=== PATIENT | female | born 1955 | race Caucasian/White ===

== ENCOUNTER → 2019-06-04 10:16 | Outpatient (BNVA) | payer MEDICARE, SELFPAY | PROVIDERS: Family Provider Internal Medicine; PCP Internal Medicine; Visit Provider Nurse Practitioner Family | DX: J11.1 Influenza due to unidentified influenza virus with other respiratory manifestations (principal) | CPT/HCPCS: 87804 ==

== ENCOUNTER → 2019-07-29 13:06 | Outpatient (BNVA) | payer MEDICARE, SELFPAY | PROVIDERS: Family Provider Internal Medicine; PCP Internal Medicine; Visit Provider Nurse Practitioner | DX: F31.73 Bipolar disorder, in partial remission, most recent episode manic (principal) | CPT/HCPCS: 99214 ==

== ENCOUNTER → 2019-10-04 13:15 | Outpatient (BNVA) | payer MEDICARE, SELFPAY | PROVIDERS: Family Provider Internal Medicine; PCP Internal Medicine; Visit Provider Internal Medicine | DX: E03.9 Hypothyroidism, unspecified (principal); I10 Essential (primary) hypertension; K58.1 Irritable bowel syndrome with constipation | CPT/HCPCS: 80053; 84443; 85025 ==

== ENCOUNTER → 2019-10-21 08:24 | Outpatient (BNVA) | payer MEDICARE, SELFPAY | PROVIDERS: Family Provider Internal Medicine; PCP Internal Medicine; Visit Provider Nurse Practitioner | DX: F31.73 Bipolar disorder, in partial remission, most recent episode manic (principal) | CPT/HCPCS: 99213 ==

== ENCOUNTER 2019-12-06 13:13 | Outpatient (CLI) | payer MEDICARE, SELFPAY ==
[2019-12-06 13:46] LABS: Basophils % 0.3 %; Eosinophils # 0.2 10^3/uL (0.0-0.8); Hematocrit 47.6 % (37.0-47.0); Lymphocytes # 1.9 10^3/uL (0.8-4.8); Lymphocytes % 30.8 %; Mean Corpuscular HGB Conc 31.5 g/dL (30.0-36.0); Mean Corpuscular Hemoglobin 27.6 pg (28.0-34.0); Mean Corpuscular Volume 87.5 fL (81-99); Mean Platelet Volume 10.1 fL (7.4-10.4); Monocytes # 0.7 10^3/uL (0.2-0.9); Monocytes % 11.1 %; Neutrophils % 54.6 %; Nucleated Red Blood Cells % 0 %; Platelet Count 256 10^3/cmm (130-400); Red Blood Count 5.44 10^6/uL (4.1-5.3); Red Cell Distribution Width 16.8 % (12.1-15.1)
[2019-12-06 14:25] LABS: Creatinine Urine, Random 68 mg/dL (28-217); Microalbumin Random Urine 4 ug/dL (0-20)
[2019-12-06 14:29] LABS: Microalbum Creatinine Ratio Ur 59 mg/dL (0-20)
[2019-12-06 14:43] LABS: 25 Hydroxy Vitamin D 35 ng/mL (30-100); Albumin Level 4.1 g/dL (3.5-5.2); Anion Gap 14.6 (5-19); Blood Urea Nitrogen 17 mg/dL (8-23); Calcium 9.1 mg/dL (8.5-10.5); Carbon Dioxide 24 mmol/L (22-29); Chloride 100 mmol/L (98-107); Glomerular Filtration Rate 45.5 mL/min (90-130); Glucose 102 mg/dL (65-115); Phosphorus 4.1 mg/dL (2.5-4.5); Potassium 4.6 mmol/L (3.5-5.1); Sodium 134 mmol/L (136-145)
[2019-12-06 14:44] LABS: Calcium 9.3 mg/dL (8.5-10.5); Parathyroid Hormone 88.6 pg/mL (15-65)
== END 2019-12-06 13:14 | disposition home or self-care (01) ==
LOC: LAB 13:16
PROVIDERS: PCP Internal Medicine; Visit Provider Internal Medicine Nephrology
DX: N18.3 Chronic kidney disease, stage 3 (moderate) (principal)
CPT/HCPCS: 36415; 80069; 82044; 82306; 82310; 83970; 85025

== ENCOUNTER 2019-12-21 12:04 | Outpatient (CLI) | payer MEDICARE, SELFPAY ==
--- NOTE | 2019-12-21 12:09 | XRR_ITS ---
PROCEDURE INFORMATION: Exam: XR Right Knee Exam date and time: 12/21/2019 12:30 PM Age: 64 years old Clinical indication: Right; Patient HX: Fall, pain more in RT knee; Additional info: Right knee pain TECHNIQUE: Imaging protocol: XR Right knee. Views: Single lateral view. COMPARISON: MRI Knee w/o LEFT* [id number] 10/14/2013 8:08 AM FINDINGS: Bones/joints: A superior patellar articular marginal osteophyte is present. No acute bony abnormality identified. Soft tissues: Normal. IMPRESSION: 1. Mild patellar osteophytosis. 2. No acute bony injury identified. PROCEDURE INFORMATION: Exam: XR Left Knee Exam date and time: 12/21/2019 12:30 PM Age: 64 years old Clinical indication: Right; Patient HX: Fall, pain more in RT knee; Additional info: Right knee pain TECHNIQUE: Imaging protocol: XR Left knee. Views: Single lateral view. COMPARISON: MRI Knee w/o LEFT* [id number] 10/14/2013 8:08 AM FINDINGS: Bones/joints: A superior patellar articular marginal osteophyte is present. No acute bony abnormality identified. Soft tissues: Normal. IMPRESSION: 1. Mild patellar osteophytosis. 2. No acute bony injury identified. PROCEDURE INFORMATION: Exam: XR Bilateral Knees, Standing AP Exam date and time: 12/21/2019 12:30 PM Age: 64 years old Clinical indication: Right; Patient HX: Fall, pain more in RT knee; Additional info: Right knee pain TECHNIQUE: Imaging protocol: XR of the bilateral knees. Views: Standing AP. COMPARISON: MRI Knee w/o LEFT* [id number] 10/14/2013 8:08 AM FINDINGS: Bones/joints: Bilateral moderate medial compartment predominate narrowing with mild-moderate articular sclerosis, medial marginal lipping more pronounced on the right. Bilateral intercondylar eminence prominence. No lateral subluxation of the tibiae or significant varus alignment. No acute bony abnormality identified. Soft tissues: Normal. XR/[place] [id number] IMPRESSION: 1. Bilateral medial compartment predominant primary osteoarthritis. 2. No acute bony injury identified.
== END 2019-12-21 12:05 | disposition home or self-care (01) ==
LOC: RAD 12:08
PROVIDERS: PCP Internal Medicine; Visit Provider Internal Medicine
DX: M25.761 Osteophyte, right knee (principal); M25.762 Osteophyte, left knee; M17.0 Bilateral primary osteoarthritis of knee
CPT/HCPCS: 73565

== ENCOUNTER → 2020-03-08 11:55 | Outpatient (BNVA) | payer MEDICARE, SELFPAY | PROVIDERS: PCP Internal Medicine; Visit Provider Internal Medicine | DX: R10.9 Unspecified abdominal pain (principal) | CPT/HCPCS: 81000 ==

== ENCOUNTER 2020-10-16 10:20 | Outpatient (CLI) | payer MEDICARE, SELFPAY | END 2020-10-16 10:21 | disposition home or self-care (01) | LOC: LAB 08-09 16:53 | PROVIDERS: PCP Internal Medicine; Visit Provider Internal Medicine | DX: E03.9 Hypothyroidism, unspecified (principal) | CPT/HCPCS: 84443 ==

== ENCOUNTER → 2021-03-21 09:54 | Outpatient (BNVA) | payer MEDICARE, SELFPAY | PROVIDERS: PCP Internal Medicine; Visit Provider Internal Medicine | DX: Z00.00 Encounter for general adult medical examination without abnormal findings (principal); Z13.220 Encounter for screening for lipoid disorders; Z11.59 Encounter for screening for other viral diseases; Z13.1 Encounter for screening for diabetes mellitus; Z78.0 Asymptomatic menopausal state; Z86.010 Personal history of colon polyps; F17.200 Nicotine dependence, unspecified, uncomplicated; Z13.6 Encounter for screening for cardiovascular disorders; Z13.89 Encounter for screening for other disorder | CPT/HCPCS: 80061; 82947; 86705; 86706; 86709; 86803; 87340 ==

== ENCOUNTER 2021-04-27 08:48 | Outpatient (CLI) | payer MEDICARE, SELFPAY ==
--- NOTE | 2021-04-27 09:02 | XR_ITS ---
WS: [id number] Bone mineral density performed on a [employer], 04/27/2021 Clinical data: post menopausal Comparison studies: 01/04/2019, 02/18/2013. Findings: The first 4 lumbar vertebral bodies demonstrated the bone mineral density of 1.011 g/cm2 for a young adult T score of -1.4. The bone mineral density has diminished compared to the prior study. Measurement of the left hip reveals a bone mineral density of 0.891 g/cm2 with a young adult T score of -0.9. Measurement of the right hip reveals the bone mineral density of 0.912 g/cm2 for young adult T score of -0.8. XR/XR DEXA axial skeleton* [id number] Impression: 1. Osteopenia of the lumbar spine which has decreased from the prior study. 2. Osteopenia of the hips with increased bone mineral density compared to prior study.
--- NOTE | 2021-04-27 09:32 | CT_ITS ---
WS: [id number] LDCT LUNG CANCER SCREENING TECHNIQUE: Noncontrast CT of the chest with coronal and sagittal reformatted images. CLINICAL INFORMATION: smoker COMPARISON: CT chest October 04, 2015 DLP: 51.81 mGy.cm DIvol: 1.[address] scans at [facility] use at least one of these dose optimization techniques: automat ed exposure control; mA and/or kV adjustment per patient size (includes targeted exams where dose is matched to clinical indication); or iterative reconstruction. FINDINGS: Both lungs are well aerated. Postoperative changes bilateral breast prosthesis. Slight bibasilar atel ectasis. No acute pulmonary infiltrates. No mediastinal or hilar lymphadenopathy. Surgical clips left axilla. Cholecystectomy clips. Adrenal Glands are normal. Small esophageal hiatal hernia. Mild spond ylitic changes thoracic spine with disc space narrowing. 2 mm noncalcified nodule right upper lobe. CT/CT lung screening [id number] IMPRESSION: LUNG-RADS: 2-Benign Appearance or Behavior FOLLOW UP: 12 Month: Continue annual screening with LDCT
== END 2021-04-27 08:49 | disposition home or self-care (01) ==
PROVIDERS: PCP Internal Medicine; Visit Provider Internal Medicine
DX: Z12.2 Encounter for screening for malignant neoplasm of respiratory organs (principal); F17.200 Nicotine dependence, unspecified, uncomplicated; Z78.0 Asymptomatic menopausal state; M85.88 Other specified disorders of bone density and structure, other site
CPT/HCPCS: 71271; 77080

== ENCOUNTER 2021-06-20 07:02 | Outpatient (CLI) | payer MEDICARE, SELFPAY ==
--- NOTE | 2021-06-20 07:15 | US_ITS ---
WS: [id number] ULTRASOUND SOFT TISSUES RIGHT axilla HISTORY: Z85.3 - Personal history of malignant neoplasm of breast COMPARISON: Lung CT screening 04/27/2018 TECHNIQUE: 2-D and color Doppler imaging is submitted. Ultrasound is directed to the RIGHT axilla in the area of interest. Seen on the transverse imaging is irregular shaped soft tissue mass of predominantly low echogenicity. Mild peripheral increased vascu larity. There is a hyperechoic border. Upon sagittal imaging this elongates and appears more be ori l muscle. As this is a significant abnormality in the transverse view additional imaging should be at tempted to exclude a mass. US/US soft tissue/extremity [id number] IMPRESSION: 1. Indeterminate for mass in the RIGHT axilla in the region of the palpable ab normality. Only on the transverse image does this area appear suspicious. On th e sagittal imaging this masslike area elongates and appears more like a normal muscle. 2. Additional imaging and evaluation should be attempted to exclude a subtle m ass or adenopathy. This ultrasound is inconclusive for possible mass. Consider follow-up RIGHT shoulder CT with IV contrast. Palpable marker should be placed over the area of interest. This would include the axillary region.
== END 2021-06-20 07:03 | disposition home or self-care (01) ==
LOC: RAD 07:04
PROVIDERS: PCP Internal Medicine; Visit Provider Surgery
DX: Z85.3 Personal history of malignant neoplasm of breast (principal); N63.31 Unspecified lump in axillary tail of the right breast
CPT/HCPCS: 76882

== ENCOUNTER → 2021-10-04 14:32 | Outpatient (BNVA) | payer MEDICARE, SELFPAY | PROVIDERS: PCP Internal Medicine; Visit Provider Internal Medicine | DX: R53.83 Other fatigue (principal); D64.9 Anemia, unspecified; R30.0 Dysuria; I10 Essential (primary) hypertension; E03.9 Hypothyroidism, unspecified; K58.1 Irritable bowel syndrome with constipation; Z86.010 Personal history of colon polyps; M50.90 Cervical disc disorder, unspecified, unspecified cervical region; M25.561 Pain in right knee; F31.73 Bipolar disorder, in partial remission, most recent episode manic | CPT/HCPCS: 80053; 81000; 82607; 82746; 83550; 84443; 85025 ==

== ENCOUNTER 2023-05-14 08:24 | Outpatient (CLI) | payer MEDICARE, SELFPAY ==
--- NOTE | 2023-05-14 08:27 | MR_ITS ---
WS: [id number] MRI PELVIS WITHOUT CONTRAST. COMPARISON: CT 04/20/2018 Multiplanar, multisequence imaging is performed without contrast. No sacral insufficiency fracture identified. SI joints are normal. No edema within the sacrum. As compared to the prior CT from 2018 there has been a progression of degenerative joint disease invo lving the hips, RIGHT greater than LEFT. There is synovial thickening with erosions especially involv ing the RIGHT femoral head and the acetabulum. Subchondral cystic changes bilaterally but greatest on the RIGHT. There is a small amount of edema in the acetabulum and also in the proximal femurs, RIGH T greater than LEFT. This is not a typical appearance for recent trauma. I suspect this is probably a ll inflammatory and post arthritic. Paralabral cyst also suspected on the RIGHT. There is a very tiny amount of edema within the very distal coccyx. This may be from the recent traum a. There is a small amount of fluid and edema adjacent to the posterior and inferior coccygeal segmen t. IMPRESSION: 1. Small amount of acute marrow edema in the very distal coccyx with adjacent soft tissue edema. This is probably related to the recent trauma. A tiny fracture in the very distal coccygeal segment is [place] spected. 2. Significant degenerative changes noted at the hip joints bilaterally, RIGHT greater than LEFT. Pro gressed since 2018. Favor synovitis and possible inflammatory/rheumatoid arthritis. Greater amount of erosions with joint space narrowing and edema involving the RIGHT hip.
--- NOTE | 2023-05-14 08:27 | MR_ITS ---
WS: [id number] MRI LUMBAR SPINE NONCONTRAST HISTORY: Coccydynia. COMPARISON: None available. TECHNIQUE: Sagittal and axial multisequence imaging is submitted. Increase in thoracic kyphosis. Variable signal in T10 is probably due to hemangioma. Mild curvature and increased lumbar lordosis. No fractures. No marrow edema in the lumbar spine. Disc spaces and vertebral body heights are well-preserved. Conus terminates normally at L1-2 disc level. L1-L2: Diffuse annular disc bulging encroaching upon the ventral thecal sac. No high-grade stenosis. L2-L3: Diffuse mild annular disc bulging, ligamentum flavum and facet arthritis. Encroachment upon th e ventral thecal sac and the subarticular recesses. Very mild central, bilateral subarticular recess and foraminal stenosis. Most significant encroachment upon the traversing RIGHT L3 nerve root. L3-L4: Mild annular disc bulging encroaching upon the ventral thecal sac, subarticular recesses and f oramina. Moderate ligamentum flavum and facet arthritis. L4-L5: Mild annular disc bulging. Shallow LEFT paracentral disc protrusion extends into the subarticu lar recess. Severe bilateral facet joint arthritis and ligamentum flavum hypertrophy. Moderate centra l, bilateral subarticular recess and LEFT foraminal stenosis. Mild RIGHT foramen stenosis. L5-S1: No stenosis. Marked atrophy of the RIGHT kidney. Renal atrophy previously described on 04/20/2018. IMPRESSION: 1. No lumbar spine fracture. 2. L4-5: Shallow LEFT paracentral disc protrusion extends into the subarticular recess. Severe bilate ral facet joint arthritis and ligamentum flavum hypertrophy. Combination of findings resulting in mod erate central, bilateral subarticular recess and LEFT foraminal stenosis. Only mild RIGHT foramen caro nosis. 3. L3-4: Moderate facet joint arthritis. Mild central, subarticular recess and foraminal stenosis. 4. L2-3: Mild central, bilateral subarticular recess and foraminal stenosis.
== END 2023-05-14 08:25 | disposition home or self-care (01) ==
LOC: RAD 08:24
PROVIDERS: PCP Internal Medicine; Visit Provider Internal Medicine
DX: M53.3 Sacrococcygeal disorders, not elsewhere classified (principal); M51.26 Other intervertebral disc displacement, lumbar region; M47.816 Spondylosis without myelopathy or radiculopathy, lumbar region; M48.061 Spinal stenosis, lumbar region without neurogenic claudication
CPT/HCPCS: 72148; 72195

== ENCOUNTER → 2024-01-01 11:57 | Outpatient (BNVA) | payer MEDICARE, SELFPAY | PROVIDERS: PCP Internal Medicine; Visit Provider Family Medicine Adult Medicine | DX: E03.9 Hypothyroidism, unspecified (principal); I10 Essential (primary) hypertension; F31.73 Bipolar disorder, in partial remission, most recent episode manic; K58.1 Irritable bowel syndrome with constipation | CPT/HCPCS: 80053; 84443; 85025 ==

== ENCOUNTER → 2024-01-07 10:11 | Outpatient (BNVA) | payer MEDICARE, SELFPAY | PROVIDERS: PCP Family Medicine Adult Medicine | DX: I10 Essential (primary) hypertension (principal); D69.6 Thrombocytopenia, unspecified | CPT/HCPCS: 85025 ==

== ENCOUNTER → 2024-01-09 13:43 | Outpatient (BNVA) | payer MEDICARE, SELFPAY | PROVIDERS: PCP Family Medicine Adult Medicine; Visit Provider Family Medicine Adult Medicine | DX: I12.9 Hypertensive chronic kidney disease with stage 1 through stage 4 chronic kidney disease, or unspecified chronic kidney disease (principal); R74.8 Abnormal levels of other serum enzymes; N18.31 Chronic kidney disease, stage 3a; D69.6 Thrombocytopenia, unspecified | CPT/HCPCS: 80053; 80061 ==

== ENCOUNTER 2024-03-24 09:32 | Outpatient (CLI) | payer MEDICARE, SELFPAY ==
--- NOTE | 2024-03-24 09:37 | CT_ITS ---
WS: [id number] CT CHEST, ABDOMEN AND PELVIS WITH CONTRAST HISTORY: MALIGN NEOPL BREAST/OSTEOPENIA/ENLARGED LYMPH NODES TECHNIQUE: Contiguous 5 mm axial imaging performed through the chest, abdomen and pelvis with IV cont rast, oral contrast has been provided. Coronal and sagittal reformats chest. Coronal and sagittal ref ormats through the abdomen and pelvis. All CT scans at [facility] use at least one of these d ose optimization techniques: automated exposure control; mA and/or kV adjustment per patient size (in cludes targeted exams where dose is matched to clinical indication); or iterative reconstruction. CONTRAST: Omnipaque 350; 100 mL IV. DLP: 636.19 mGy.cm COMPARISON: CT abdomen and pelvis 04/20/2018. Lung screening 04/27/[address]: Lungs are clear. No pulmonary mass, pneumonia or nodule. No pericardial or pleural effusion s. Mild atherosclerosis aorta. Normal size pulmonary artery. Normal size heart. Small hiatal hernia. No mediastinal or hilar adenopathy. Mild increase in thoracic kyphosis. No sclerotic or lytic bone l esions. Bilateral mastectomies with implants. Abdomen CT: Normal liver and spleen. Prior cholecystectomy. Normal portal vein. Normal pancreas and a drenal glands. Severe atrophy RIGHT kidney but there is enhancement. Normal size LEFT kidney with foc al cortical thinning. No mass. No aortic aneurysm. Mesenteric arteries are well opacified. Mild gastric wall thickening is diffuse. In part this may be due to under distention. No small bowel obstruction. No colon obstruction. There are a few scattered diverticula in the distal colon. No acut e diverticulitis. There is circumferential thickening of the sigmoid colon which is probably due to c hronic diverticulosis. No ascites. There are small retroperitoneal and mesenteric lymph nodes. Pelvic CT: No free fluid or adenopathy. Normal urinary bladder. Increase in the lumbar lordosis. No osteoblastic or osteolytic bone disease. Advanced degenerative ch anges at the hip joints. Remodeling of the each hip joint but much greater on on the RIGHT. Partial l ateral subluxation with numerous erosions and subchondral cysts. There is a large cystic mass with pe ripheral enhancement associated with the RIGHT hip joint. This is probably a synovial cyst related to the advanced osteoarthritis. CT/CT chest abdpel w/*[id number] IMPRESSION: 1. No metastatic disease to the chest, abdomen or pelvis. 2. No pulmonary masses or nodules. 3. Prior bilateral mastectomies with implants. 4. Severe atrophy RIGHT kidney. LEFT kidney is normal size with focal cortical thinning. 5. No GI tract obstruction. 6. Severe degenerative changes at the hip joints but greatest on the RIGHT. 7. Small mesenteric and retroperitoneal lymph nodes. No significantly enlarged lymph nodes.
[2024-03-24] MEDS: iohexol 350 mg/mL 500 mL Btl (per mL) PO (10:26)
[2024-03-24 10:32] LABS: Blood Urea Nitrogen 22 mg/dL (8-23); Glomerular Filtration Rate 55.5 mL/min (90-130)
[2024-03-24] MEDS: iohexol 350 mg/mL 500 mL Btl (per mL) IV (11:34)
== END 2024-03-24 09:33 | disposition home or self-care (01) ==
LOC: RAD 09:33
PROVIDERS: PCP Family Medicine Adult Medicine; Visit Provider Internal Medicine
DX: R22.2 Localized swelling, mass and lump, trunk (principal); M16.0 Bilateral primary osteoarthritis of hip; K57.90 Diverticulosis of intestine, part unspecified, without perforation or abscess without bleeding; Z98.82 Breast implant status; Z90.49 Acquired absence of other specified parts of digestive tract; M71.351 Other bursal cyst, right hip
CPT/HCPCS: 71260; 74177; 82565; 84520

== ENCOUNTER → 2024-04-26 14:27 | Outpatient (BNVA) | payer MEDICARE, SELFPAY | PROVIDERS: PCP Family Medicine Adult Medicine; Visit Provider Nurse Practitioner | DX: M25.551 Pain in right hip (principal); M16.11 Unilateral primary osteoarthritis, right hip; M85.68 Other cyst of bone, other site | CPT/HCPCS: 73502; 99204 ==

== ENCOUNTER → 2024-05-27 09:35 | Outpatient (BNVA) | payer MEDICARE, SELFPAY | PROVIDERS: PCP Family Medicine; Visit Provider Family Medicine | DX: R39.15 Urgency of urination (principal); R50.9 Fever, unspecified; N18.31 Chronic kidney disease, stage 3a; K57.90 Diverticulosis of intestine, part unspecified, without perforation or abscess without bleeding; E03.9 Hypothyroidism, unspecified; I25.10 Atherosclerotic heart disease of native coronary artery without angina pectoris; I10 Essential (primary) hypertension; R74.8 Abnormal levels of other serum enzymes | CPT/HCPCS: 80053; 80061; 81000; 84075; 84080; 84439; 84443; 85025; 87086 ==

== ENCOUNTER → 2024-05-28 14:40 | Outpatient (BNVA) | payer MEDICARE, SELFPAY | PROVIDERS: PCP Family Medicine; Visit Provider Family Medicine | DX: R39.15 Urgency of urination (principal); R50.9 Fever, unspecified; N18.31 Chronic kidney disease, stage 3a; K57.90 Diverticulosis of intestine, part unspecified, without perforation or abscess without bleeding; E03.9 Hypothyroidism, unspecified; I25.10 Atherosclerotic heart disease of native coronary artery without angina pectoris; I10 Essential (primary) hypertension; R74.8 Abnormal levels of other serum enzymes | CPT/HCPCS: 85025 ==

== ENCOUNTER → 2024-05-31 10:30 | Outpatient (BNVA) | payer MEDICARE, SELFPAY | PROVIDERS: PCP Family Medicine; Visit Provider Nurse Practitioner | DX: M16.11 Unilateral primary osteoarthritis, right hip (principal); Z22.322 Carrier or suspected carrier of Methicillin resistant Staphylococcus aureus; M85.68 Other cyst of bone, other site | CPT/HCPCS: 36415; 80053; 81001; 85025; 99214 ==

== ENCOUNTER → 2024-06-02 09:12 | Outpatient (BNVA) | payer MEDICARE, SELFPAY | PROVIDERS: PCP Family Medicine; Visit Provider Family Medicine | DX: Z01.818 Encounter for other preprocedural examination (principal); I51.7 Cardiomegaly | CPT/HCPCS: 93005 ==

== ENCOUNTER → 2024-06-03 09:00 | Day surgery (SDC) | payer MEDICARE, SELFPAY ==
[2024-06-03 09:10] VITALS: BP 148/104; PULSE 90; RESP 18; TEMP 36.2; O2SAT 100
[2024-06-03 09:26] VITALS: BMI 24.7
[2024-06-03] MEDS: gabapentin 300 mg Capsule PO (09:34)
[2024-06-03] MEDS: acetaminophen 1,000 MG/100 ML PIGGYBACK 400 MG IV (09:34)
[2024-06-03 09:35] VITALS: BP 148/104
[2024-06-03] MEDS: scopolamine 1 mg PATCH 1 PATCH TRANSDERMA (09:35)
--- NOTE | 2024-06-03 09:50 | P.ANESASSM_ITS ---
Pre-Anesthetic Assessment Height/Weight: Height 1.63 m Weight 65.317 kg Temp Pulse Resp BP Pulse Ox O2 Del Method 97.2 F L 90 18 148/104 100 Room Air 06/03/24 09:10 06/03/24 09:10 06/03/24 09:10 06/03/24 09:35 06/03/24 09:10 06/03/24 09:10 Operation Date: 06/03/24 11:10 Proposed Procedures p Total Hip Arthroplasty(Not Applicable) - Kamilla Rae MD Familial anesthetic complications: PONV Was Beta Usha taken within 24 hours: N/A Was Clonidine taken within 24 hours: N/A Last intake: Intake Last Liquid Date 06/02/24 Last Liquid Time 22:00 Last Solid Date 06/02/24 Last Solid Time 19:30 Social Tobacco and No alcohol Exam alert, oriented x 3 and regular rate & rhythm Airway Submandibular: within normal limits Cervical ROM: within normal limits Mallampati: Class II Dentition: full Pulmonary Chronic Obstructive Pulmonary Disease CV/HEM Coronary Artery Disease and Murmur (MVP) Chronic Renal Insufficiency Metabolic Thyroid Disease Musc/skel Lower Back Pain and Osteoarthritis/DJD Neuropsych Anxiety and Depression Chronic pain Anesthetic Plan ASA status: 3 Anesthesia: Regional (specify below) (SAB) Medications/Allergies Home Medications Medication Instructions Recorded Confirmed Last Taken Type clonazepam 0.5 mg tablet (Klonopin) 0.5 mg PO DAILY PRN anxiety #30 01/01/24 06/03/24 06/02/24 Rx tabs tizanidine 4 mg capsule 4 mg PO BEDTIME PRN muscle relaxer 01/01/24 06/03/24 06/02/24 History levothyroxine 175 mcg tablet 175 mcg PO DAILY #90 tabs 01/02/24 06/03/24 06/02/24 Rx hydrocodone 5 mg-acetaminophen 300 1 tab PO Q6H PRN Pain, Mild 04/26/24 06/03/24 06/02/24 History mg tablet meloxicam 15 mg tablet 15 mg PO DAILY PRN pain #30 tabs 05/24/24 06/03/24 05/29/24 Rx mupirocin 2 % topical ointment 1 applic topical BID 7 days #15 05/31/24 06/03/24 Unknown Rx grams prednisone 20 mg tablet See Rx Instructions PO DAILY #4 05/31/24 06/03/24 06/02/24 Rx tabs ondansetron HCl 8 mg tablet 8 mg PO Q6H PRN Nausea And Vomiting 06/02/24 06/03/24 05/31/24 History Allergies Allergy/AdvReac Type Severity Reaction Status Date / Time Penicillins Allergy Severe ALGY-Anaphy Verified 06/03/24 09:14 laxis ciprofloxacin [From Cipro] Allergy rash Verified 06/03/24 09:14 erythromycin base Allergy rash Verified 06/03/24 09:14 propoxyphene [From Darvon] Allergy rash Verified 06/03/24 09:14 Sulfa (Sulfonamide Allergy rash Verified 06/03/24 09:14 Antibiotics) titanium Allergy Unknown Verified 06/03/24 09:14 [facility] Anesthesia Medical History Abnormal alkaline phosphatase test TREVOR (obstructive sleep apnea) not using CPAP Mitral valve prolapse Refusal of statin medication by patient Chronic pain pain meds through pain clinic [facility] Nicotine dependence, cigarettes, uncomplicated Lumbar back pain Diverticulosis Family hx of colon cancer CAD (coronary artery disease) has had angioplasty twice; refuses statins History of bilateral breast cancer bilateral mastectomy; no radiation or chemo; sees Dr. Brandt at [facility] Knee pain, right Need for antibiotic prophylaxis for dental procedure CKD stage 3a, GFR 45-59 ml/min atrophic Right History of uterine cancer hyst only Bipolar disorder, in partial remission, most recent episode manic Essential (primary) hypertension refuses med; says her BP is fine and only up when in pain Acquired hypothyroidism History of colon polyps Surgical History Hx of hand surgery Right middle finger knuckle replaced in [employer] History of surgery on lower extremity Left lower leg--had fx, surgery, then infected so had it removed History of mandibular surgery R jaw--done b/c of infection in bone after root canal History of surgery of head R evangelical; not a craniotomy Hx of colonoscopy with polypectomy hx of >20 polyps removed; Hx of hysterectomy ovaries remaining; done for uterine cancer History of kidney surgery had ureter surgery bilaterally; H/O left mastectomy H/O right mastectomy History of cholecystectomy History of hernia repair R abdominal X 2 History of colonoscopy History of angioplasty cardiac; has had angioplasty X 2--last time at [facility] History of appendectomy History of elbow surgery Right History of esophagogastroduodenoscopy (EGD) Family History Mother Alzheimer's dementia Sister Alzheimer's dementia Grandmother Aneurysm cerebral Father Colon cancer Grandfather Cancer kidney Brother Colon cancer Sister Cancer Lymphoma Other Kidney disease Social History Smoking and tobacco/nicotine status: current every day tobacco/nicotine user cigarettes Packs smoked per day: 0.75 [ Other cigarette details: 27pk yr hx; started age 32] Alcohol intake: current Alcohol intake frequency: few times a month Alcohol type: beer Substance/Drug Use: never Household members: spouse Marital status: Number of children: 0 Highest education level completed: Some College, No Degree Current occupational status: retired 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
[2024-06-03] MEDS: sodium chloride 0.9% 1,000 ML 30 ML IV (10:00)
[2024-06-03] MEDS: VANCOMYCIN ADD-Vantage 1,000 MG in 0.9% NaCl ADD-Vantage 250 ML 250 MG IV (10:14)
[2024-06-03] MEDS: mupirocin oint 22 gm 1 APPLIC NOSTRIL-B (10:26)
[2024-06-03 10:34] VITALS: RESP 18; O2SAT 100
[2024-06-03] MEDS: HYDROmorphone 1 mg/mL INJ 1 mL 0.5 MG IVP (10:34)
--- NOTE | 2024-06-03 11:10 | PC.NURSE ---
Patient allergic to titanium. Dr. Rae and Carlotta in to speak with patient. Decision made to cancel surgery at this time.
--- NOTE | 2024-06-03 11:27 | PM.MISC ---
Miscellaneous Note Purpose of Documentation: Case Cancelled Note: Surgical case cancelled for component allergy.
--- NOTE | 2024-06-03 17:34 | PM.MISC ---
Miscellaneous Note Purpose of Documentation: Surgery Cancellation Note: Patient presented for her surgical procedure today. She had significant concerns regarding a potential titanium allergy. There is no available implant that does not include titanium. I advised her I would research available implants that did not contain titanium, and we would plan to proceed. She is advised this is a very rare allergy, and even with allergy, there are minimal reports of true allergy with implants. Due to her reaction to prior plate and screws, it seemed the better plan to delay the intervention.
== END ==
PROVIDERS: PCP Family Medicine; Visit Provider Specialist
PROC: (CPT 27130; principal; 2024-06-03 10:35)
DX: Z53.8 Procedure and treatment not carried out for other reasons (principal)
CPT/HCPCS: J0131; J1171; J2250; J2704; J3370; J7030; J7050

== ENCOUNTER → 2024-06-16 14:09 | Outpatient (BNVA) | payer MEDICARE, SELFPAY | PROVIDERS: PCP Family Medicine; Visit Provider Nurse Practitioner | DX: M16.11 Unilateral primary osteoarthritis, right hip (principal); M85.60 Other cyst of bone, unspecified site; Z22.322 Carrier or suspected carrier of Methicillin resistant Staphylococcus aureus | CPT/HCPCS: 99213 ==

== ENCOUNTER 2024-07-06 06:42 | Day surgery (SDC) | payer MEDICARE, SELFPAY ==
[2024-07-06 06:54] VITALS: BP 156/100; PULSE 84; RESP 17; TEMP 36.5; O2SAT 97; BMI 24.7
--- NOTE | 2024-07-06 07:24 | SUR.PREOP ---
0705 Dr Rae here with patient and after speaking with pt,d-dimer ordered due to pt c/o bilateral swollen legs,will hold off surgery until results done,OR staff and anesthesia notified
--- NOTE | 2024-07-06 07:35 | P.ANESASSM_ITS ---
Pre-Anesthetic Assessment Height/Weight: Height 5 ft 4 in Weight 144 lb Temp Pulse Resp BP Pulse Ox O2 Del Method 97.7 F 84 17 156/100 97 Room Air 07/06/24 06:54 07/06/24 06:54 07/06/24 06:54 07/06/24 06:54 07/06/24 06:54 07/06/24 06:54 Preop Diagnosis: Hip arthritis Operation Date: 07/06/24 07:50 Proposed Procedures p Total Hip Arthroplasty(Right) - Kamilla Rae MD Was Beta Usha taken within 24 hours: N/A Was Clonidine taken within 24 hours: N/A Last intake: Intake Last Liquid Date 07/05/24 Last Liquid Time 22:00 Last Solid Date 07/05/24 Last Solid Time 21:00 Social Tobacco and No alcohol Exam alert, oriented x 3, clear to auscultation bilaterally and regular rate & rhythm Airway Submandibular: within normal limits Cervical ROM: within normal limits Mallampati: Class II Dentition: full Anesthetic Plan ASA status: 3 Anesthesia: MAC and Regional (specify below) Other: No prior issues with anesthesia, patient was recently here and found to have a titanium allergy. Patient was rescheduled for today NPO since yesterday History of COPD, current smoker CAD with mitral valve prolapse Patient has chronic renal insufficiency Patient has chronic renal insufficiency Hypothyroidism on Synthroid Patient takes chronic Show Low 4 times daily for pain Patient states that she has swelling in her extremities, surgeon would like a D- dimer prior to going to surgery Type and screen will be performed Plan for spinal anesthetic Medications/Allergies Home Medications ?Medication ?Instructions ?Recorded ?Confirmed ?Last Taken ?Type clonazepam 0.5 mg tablet (Klonopin) 0.5 mg PO DAILY NE N anxiety #30 01/01/24 07/05/24 07/04/24 Rx tabs tizanidine 4 mg capsule 4 mg PO BEDTIME PRN muscle r elaxer 01/01/24 07/05/24 07/04/24 History levothyroxine 175 mcg tablet 175 mcg PO DAILY #90 tabs 01/02/24 07/05/24 07/05/24 Rx hydrocodone 5 mg-acetaminophen 300 1 tab PO Q6H PRN Pa in, Mild 04/26/24 07/05/24 07/04/24 History mg tablet meloxicam 15 mg tablet 15 mg PO DAILY PRN pain #30 tabs 05/24/24 07/05/24 06/21/24 Rx mupirocin 2 % topical ointment 1 applic topical BID 7 days #15 05/31/24 07/05/24 Unknown Rx grams ondansetron HCl 8 mg tablet 8 mg PO Q6H PRN Nausea And Vomiting 06/02/24 07/05/24 07/03/24 History Allergies Allergy/AdvReac Type Severity Reaction Status Date / Time Penicillins Allergy Severe ALGY-Anaphy Verified 07/06/24 07:14 laxis ciprofloxacin (From Cipro) Allergy rash Verified 07/06/24 07:14 erythromycin base Allergy rash Verified 07/06/24 07:14 propoxyphene (From Darvon) Allergy rash Verified 07/06/24 07:14 Sulfa (Sulfonamide Allergy rash Verified 07/06/24 07:14 Antibiotics) titanium Allergy Unknown Verified 07/06/24 07:14 PFSH Anesthesia Medical History Abnormal alkaline phosphatase test TREVOR (obstructive sleep apnea) not using CPAP Mitral valve prolapse Refusal of statin medication by patient Chronic pain pain meds through pain clinic [facility] Nicotine dependence, cigarettes, uncomplicated Lumbar back pain Diverticulosis Family hx of colon cancer CAD (coronary artery disease) has had angioplasty twice; refuses statins History of bilateral breast cancer bilateral mastectomy; no radiation or chemo; sees Dr. Brandt at [facility] Knee pain, right Need for antibiotic prophylaxis for dental procedure CKD stage 3a, GFR 45-59 ml/min atrophic Right History of uterine cancer hyst only Bipolar disorder, in partial remission, most recent episode manic Essential (primary) hypertension refuses med; says her BP is fine and only up when in pain Acquired hypothyroidism History of colon polyps Surgical History Hx of hand surgery Right middle finger knuckle replaced in [place] History of surgery on lower extremity Left lower leg--had fx, surgery, then infected so had it removed History of mandibular surgery R jaw--done b/c of infection in bone after root canal History of surgery of head R rastafari; not a craniotomy Hx of colonoscopy with polypectomy hx of >20 polyps removed; Hx of hysterectomy ovaries remaining; done for uterine cancer History of kidney surgery had ureter surgery bilaterally; H/O left mastectomy H/O right mastectomy History of cholecystectomy History of hernia repair R abdominal X 2 History of colonoscopy History of angioplasty cardiac; has had angioplasty X 2--last time at [facility] History of appendectomy History of elbow surgery Right History of esophagogastroduodenoscopy (EGD) Family History Mother Alzheimer's dementia Sister Alzheimer's dementia Grandmother Aneurysm cerebral Father Colon cancer Grandfather Cancer kidney Brother Colon cancer Sister Cancer Lymphoma Other Kidney disease Social History Smoking and tobacco/nicotine status: current every day tobacco/nicotine user cigarettes Packs smoked per day: 0.75 [ Other cigarette details: 27pk yr hx; started age 32] Alcohol intake: current Alcohol intake frequency: few times a month Alcohol type: beer Substance/Drug Use: never Household members: spouse Marital status: Number of children: 0 Highest education level completed: Some College, No Degree Current occupational status: retired 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
[2024-07-06 08:06] LABS: D Dimer 1.46 ug/mLFEU (0-0.59)
--- NOTE | 2024-07-06 08:17 | PC.NURSE ---
patient was here for right hip surgery with Dr. Rae complaints of leg swelling and pain from hip down. Received a D dimer and it came back positive. Dr. Rae wants patient to go to ER for further evaluation. Transported patient to ER. Patient vitals are stable and no distress noted. Report given to ER nurse at bedside.
--- NOTE | 2024-07-06 09:38 | P.MISC_ITS ---
Miscellaneous Note Purpose of Documentation: Cancellation of surgery Note: This 69-year-old presented today for total hip arthroplasty. Previously, she was scheduled for total hip arthroplasty, but upon discussion, the patient reported that she had a titanium allergy . When queried further about this, the patient stated that she had been told this by wound care several years ago when she had difficulty healing the wound following an ankle fracture. The pl ate was removed, and the wound healed. To address her concerns regarding this allergy, research was accomplished and today, a special prosthesis was available that is titanium free . It was explained to the patient that this would require a cemented component as the press-fit components have an element of titanium. When the patient presented today, she stated that her legs have been very painful over the past 3 days. She had increased swelling stating that her legs were huge at night. Because of this, concern was expressed to the patient regarding potential for early DVT. D-dimer was ordered in the preoperative area and returned at 1.46 with the upper limit of normal 0.59. For this reason, the patient was sent to the emergency department for further evaluation of her sudden increase in leg pain as well as significant increase in level of swelling in her lower extremities. This was explained in detail to the patient. She understood and was comfortable with the decision.
== END 2024-07-06 11:54 | disposition home or self-care (01) ==
LOC: OR 06:43
PROVIDERS: PCP Family Medicine; Visit Provider Specialist
PROC: (CPT 27130; principal; 2024-07-06 07:50)
DX: M16.11 Unilateral primary osteoarthritis, right hip (principal); M85.651 Other cyst of bone, right thigh; Z53.09 Procedure and treatment not carried out because of other contraindication; Z91.09 Other allergy status, other than to drugs and biological substances; Z88.0 Allergy status to penicillin; Z88.8 Allergy status to other drugs, medicaments and biological substances; Z88.2 Allergy status to sulfonamides; F17.210 Nicotine dependence, cigarettes, uncomplicated; Z86.14 Personal history of Methicillin resistant Staphylococcus aureus infection; I25.10 Atherosclerotic heart disease of native coronary artery without angina pectoris; E03.9 Hypothyroidism, unspecified; Z79.890 Hormone replacement therapy; Z79.899 Other long term (current) drug therapy; G47.33 Obstructive sleep apnea (adult) (pediatric); I12.9 Hypertensive chronic kidney disease with stage 1 through stage 4 chronic kidney disease, or unspecified chronic kidney disease; Z85.42 Personal history of malignant neoplasm of other parts of uterus; N18.31 Chronic kidney disease, stage 3a; Z85.3 Personal history of malignant neoplasm of breast
CPT/HCPCS: 36415; 85378; 86850; 86900; J2250; J2371; J2405; J2704; J3370

== ENCOUNTER 2024-07-06 08:23 | Emergency (ER) | payer MEDICARE, SELFPAY ==
[2024-07-06 08:27] VITALS: BP 153/105; PULSE 82; RESP 17; TEMP 36.6; O2SAT 97; BMI 24.7
--- NOTE | 2024-07-06 08:41 | XR_ITS ---
WS: [id number] XR chest 1V portable [id number] REASON FOR EXAM: dyspnea/cough FINDINGS: Significant tortuosity and ectasia of the thoracic aorta. Aortic arch appears rather prominent however CT scan of the chest abdomen and pelvis 03/24/2024 demonstrated no aneurysmal dilatation. Calcified granulomatous disease in both hemithoraces. No acute pulmonary parenchymal or pleural abnormality is identified. Mild thoracic scoliosis with moderate degenerative spondylosis of the thoracic spine. Moderate degenerative arthropathy in both shoulders. XR/XR chest 1V portable [id number] IMPRESSION: No acute chest abnormality.
--- NOTE | 2024-07-06 08:41 | USCV_ITS ---
Rickey Kellie Age: 69 Gender: F : 1955 Exam Date: 07/06/2024 08:56 Ordering Phys: Jake Michael DO Technologist: CT Exam Location: [facility] [place]_ Indication: PROCEDURES: The venous duplex Doppler examination of both lower extremities was performed in the standard fashion. Bilaterally, the common femoral, superficial femoral, profunda femoral, popliteal, posterior tibial, greater saphenous veins, and the peroneal trunk were identified and interrogated in the standard fashion. These veins were found to be easily compressible with spontaneous blood flow. No evidence of insufficiency or thrombus noted. FINDINGS: normal us CONCLUSIONS No evidence of right lower extremity DVT. No evidence of left lower extremity DVT. Brennon Machado MD (Electronically Signed) Final Date: 06 July 2024 10:52 S
--- NOTE | 2024-07-06 08:54 | ECG_ITS ---
[facility] 2024-[facility]06 Pat Name: Kellie Lang Department: Room: Gender: Female Fraud Manager: : 1955 Requested By: Jake Brown Order Number: [id number] Samanta MD: Jaz Gregory M.D. Measurements Intervals [place] Rate: 74 P: 69 ID: 130 QRS: 82 QRSD: 86 T: 51 QT: 368 QTc: 410 Interpretive Statements SINUS RHYTHM POSSIBLE LEFT ATRIAL ENLARGEMENT [-0.1mV P-WAVE IN V1/V2] NONSPECIFIC T-WAVE ABNORMALITY Compared to ECG 06/02/2024 09:22:59 T-wave abnormality now present Left ventricular hypertrophy no longer present ST (T wave) deviation no longer present Electronically Signed On 07-07-2024 17:30:13 PAYLOADER OPERATOR by Jaz Gregory M.D. [email or web address]
--- NOTE | 2024-07-06 09:33 | ED_ITS ---
HPI - Extremity Problem 2 General: Chief complaint: Extremity Problem,Nontraumatic Stated complaint: poss blood clot (sent by blood clot) Time Seen by Provider: 07/06/24 08:41 History of Present Illness: 69-year-old female presents to the emerg ency room with concern of a possible blood clot in her lower extremities. She was scheduled for a right hip arthroplasty today there is a complaint of swelling in her lower extremities she has been fairly immobile because of the degree of pain. Patient reports significant pain in that right hip which is been ongoing she has noted some increased swelling in her lower extremities worse later in the day better when she gets up in the morning. She had a D-dimer done which was slightly elevated at 1.46 Associated symptoms: Deny chest pain, fever(s) or rash Related Data Home Medications ?Medication ?Instructions ?Recorded ?Confirmed ondansetron HCl 8 mg tablet 8 mg PO Q6H PRN Nausea And Vomiting 06/02/24 07/06/24 hydrocodone 5 mg-acetaminophen 325 0.5 - 1 tab PO Q8H PRN Pain 07/06/24 07/06/24 mg tablet tizanidine 4 mg tablet 4 mg PO DAILY PRN Muscle Spa sm 07/06/24 07/06/24 Previous Rx's ?Medication ?Instructions ?Recorded clonazepam 0.5 mg tablet (Klonopin) 0.5 mg PO DAILY NE N anxiety #30 01/01/24 tabs levothyroxine 175 mcg tablet 175 mcg PO DAILY #90 tabs 01/02/24 meloxicam 15 mg tablet 15 mg PO DAILY PRN pain #30 tabs 05/24/24 mupirocin 2 % topical ointment 1 applic topical BID 7 days #15 05/31/24 grams Allergies Allergy/AdvReac Type Severity Reaction Status Date / Time Penicillins Allergy Severe ALGY-Anaphy Verified 07/06/24 07:14 laxis ciprofloxacin (From Cipro) Allergy rash Verified 07/06/24 07:14 erythromycin base Allergy rash Verified 07/06/24 07:14 propoxyphene (From Darvon) Allergy rash Verified 07/06/24 07:14 Sulfa (Sulfonamide Allergy rash Verified 07/06/24 07:14 Antibiotics) titanium Allergy Unknown Verified 07/06/24 07:14 Review of Systems 2 Const: Denies: fever(s) or chills Card: Denies: chest pain Resp: Denies: dyspnea GI: Denies: abdominal pain : Denies: dysuria, urinary frequency or urinary urgency Musc: Reports: extremity swelling and joint pain (Right hip); Denies: neck pain or back pain Skin/Breast: Denies: rash PFSH ED 2 PFSH: Medical History Abnormal alkaline phosphatase test TREVOR (obstructive sleep apnea) not using CPAP Mitral valve prolapse Refusal of statin medication by patient Chronic pain pain meds through pain clinic [facility] Nicotine dependence, cigarettes, uncomplicated Lumbar back pain Diverticulosis Family hx of colon cancer CAD (coronary artery disease) has had angioplasty twice; refuses statins History of bilateral breast cancer bilateral mastectomy; no radiation or chemo; sees Dr. Brandt at [facility] Knee pain, right Need for antibiotic prophylaxis for dental procedure CKD stage 3a, GFR 45-59 ml/min atrophic Right History of uterine cancer hyst only Bipolar disorder, in partial remission, most recent episode manic Essential (primary) hypertension refuses med; says her BP is fine and only up when in pain Acquired hypothyroidism History of colon polyps Surgical History Hx of hand surgery Right middle finger knuckle replaced in [place] History of surgery on lower extremity Left lower leg--had fx, surgery, then infected so had it removed History of mandibular surgery R jaw--done b/c of infection in bone after root canal History of surgery of head R sikhism; not a craniotomy Hx of colonoscopy with polypectomy hx of >20 polyps removed; Hx of hysterectomy ovaries remaining; done for uterine cancer History of kidney surgery had ureter surgery bilaterally; H/O left mastectomy H/O right mastectomy History of cholecystectomy History of hernia repair R abdominal X 2 History of colonoscopy History of angioplasty cardiac; has had angioplasty X 2--last time at [facility] History of appendectomy History of elbow surgery Right History of esophagogastroduodenoscopy (EGD) Family History Mother Alzheimer's dementia Sister Alzheimer's dementia Grandmother Aneurysm cerebral Father Colon cancer Grandfather Cancer kidney Brother Colon cancer Sister Cancer Lymphoma Other Kidney disease Social History (Reviewed 01/28/25 @ 16:35 by Nelda Mccain [facility] Smoking and tobacco/nicotine status: current every day tobacco/nicotine user cigarettes Packs smoked per day: 0.75 [ Other cigarette details: 27pk yr hx; started age 32] Alcohol intake: current Alcohol intake frequency: few times a month Alcohol type: beer Substance/Drug Use: never Household members: spouse Marital status: Number of children: 0 Highest education level completed: Some College, No Degree Current occupational status: retired 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 Female Reproductive History: Date of menopause: 05/26/94 Physical Exam 2 Const: COMMON NORMALS: no acute distress GENERAL APPEARANCE: cooperative and comfortable ORIENTATION/CONSCIOUSNESS: Yes awake, Yes oriented to person, Yes oriented to place and Yes oriented to time HENMT: COMMON NORMALS: normocephalic, atraumatic and hearing grossly normal bilaterally HEAD & SCALP: normocephalic and atraumatic Resp: COMMON NORMALS: normal respiratory effort, No retractions, No use of accessory muscles and clear to auscultation bilaterally AUSCULTATION: clear to auscultation bilaterally Cardio: COMMON NORMALS: regular rate, regular rhythm and No murmurs present (Cardio) RATE: regular rate RHYTHM: regular rhythm GI: COMMON NORMALS: Soft to palpation and No hepatosplenomegaly present A USCULTATION: Yes normoactive bowel sounds PALPATION: Yes Soft to palpation, No Tenderness to palpation present (GI), No Guarding due to palpation present (GI) and Yes No hepatosplenomegaly present Extremity: COMMON NORMALS: normal to inspection and capillary refill normal GENERAL: Yes edema (Slight lower extremity edema bilaterally) and Yes other findings (Bilateral lower extremity edema. Mild) Neuro: SENSORIUM/ORIENTATION: Yes oriented to person, Yes oriented to place and Yes oriented to time Skin: COMMON NORMALS: no rashes or lesions noted GENERAL SKIN EXAM: no rashes or lesions noted Course 2 Vital Signs: Vital signs: Vital Signs Temperature 97.9 F 07/06/24 08:27 Pulse Rate 94 07/06/24 11:16 Respiratory Rate 19 H 07/06/24 10:17 Blood Pressure 154/87 07/06/24 11:16 Pulse Oximetry 97 07/06/24 11:16 Oxygen Delivery Me thod Room Air 07/06/24 10:00 MDM - Extremity (Nontraumatic) Medical Decision Making Venous duplex negative no clinical significant lab findings. Her exam is significant for right osteoarthritic hip pain but otherwise unremarkable. Continue pain medications as prescribed by Dr. Montez for chronic hip pain follow-up with Dr. De Santiago for repeat scheduling of her surgery no acute DVT or emergent condition at this time Lab Data 07/06/24 09:51 07/06/24 09:51 Radiology Impressions Chest X-Ray 07/06/24 08:41 IMPRESSION: No acute chest abnormality. Laboratory Results WBC 6.79 10^3/uL (3.29-11.43) 07/06/24 09:51 RBC 4.91 10^6/uL (3.85-5.65) 07/06/24 09:51 Hgb 13.60 g/dL (11.27-16.99) 07/06/24 09:51 Hct 42.3 % (36-47) 07/06/24 09:51 MCV 86.2 fl (85-98) 07/06/24 09:51 MCH 27.7 pg (27-33) 07/06/24 09:51 MCHC 32.2 g/dL (30-55) 07/06/24 09:51 RDW 17.1 % (12.1-15.1) H 07/06/24 09:51 Plt Count 279 10^3/cmm (157-399) 07/06/24 09:51 MPV 9.1 fL (7.4-10.4) 07/06/24 09:51 Neut % (Auto) 58.7 % 07/06/24 09:51 Lymph % (Auto) 27.2 % 07/06/24 09:51 [place] % (Auto) 9.9 % 07/06/24 09:51 Eos % (Auto) 3.5 % 07/06/24 09:51 Baso % (Auto) 0.6 % 07/06/24 09:51 Neut # (Auto) 3.98 10^3/uL (1.8-7.7) 07/06/24 09:51 Lymph # (Auto) 1.9 10^3/uL (0.8-4.8) 07/06/24 09:51 [place] # (Auto) 0.7 10^3/uL (0.2-0.9) 07/06/24 09:51 Eos # (Auto) 0.2 10^3/uL (0.0-0.8) 07/06/24 09:51 Baso # (Auto) 0.0 10^3/uL (0.0-0.1) 07/06/24 09:51 Nucleated RBC % (auto) 0 % 07/06/24 09:51 Nucleated RBCs # 0.0 /100WBC 07/06/24 09:51 Sodium 135 mmol/L (136-145) L 07/06/24 09:51 Potassium 4.8 mmol/L (3.5-5.1) 07/06/24 09:51 Chloride 99 mmol/L (98-107) 07/06/24 09:51 Carbon Dioxide 24 mmol/L (22-29) 07/06/24 09:51 Anion Gap 16.8 (5-19) 07/06/24 09:51 BUN 18 mg/dL (8-23) 07/06/24 09:51 Creatinine 0.9 mg/dL (0.5-0.9) 07/06/24 09:51 GFR Calculation 62.5 mL/min (90-130) L 07/06/24 09:51 Glucose 90 mg/dL (65-115) 07/06/24 09:51 Calculated Osmolality 281 mOsm/kg (285-295) L 07/06/24 09:51 Calcium 9.1 mg/dL (8.5-10.5) 07/06/24 09:51 Total Bilirubin 0.3 mg/dL (0.15-1.2) 07/06/24 09:51 AST 18 U/L (0-32) 07/06/24 09:51 ALT 16 U/L (0-33) 07/06/24 09:51 Alkaline Phosphatase 138 U/L (35-105) H 07/06/24 09:51 Total Protein 6.3 g/dL (6.6-8.7) L 07/06/24 09:51 Albumin 3.9 g/dL (3.5-5.2) 07/06/24 09:51 Globulin 2.4 g/dL (1.3-4.6) 07/06/24 09:51 All radiology interpretation(s) finalized by discharge Discharge Plan Discharge Patient Disposition: Home Clinical Impression: Dependent edema, Osteoarthritis of right hip Condition: Stable Prescriptions: No Action clonazepam [Klonopin] 0.5 mg tablet 0.5 mg PO DAILY PRN (Reason: anxiety) Qty: 30 2RF mupirocin 2 % ointment 1 applic topical BID 7 Days Qty: 15 0RF Rx Instructions: Apply to each nare BID for 7 days. levothyroxine 175 mcg tablet 175 mcg PO DAILY Qty: 90 1RF meloxicam 15 mg tablet 15 mg PO DAILY PRN (Reason: pain) Qty: 30 2RF ondansetron HCl 8 mg tablet 8 mg PO Q6H PRN (Reason: Nausea And Vomiting) tizanidine 4 mg tablet 4 mg PO DAILY PRN (Reason: Muscle Spasm) hydrocodone-acetaminophen 5-325 mg tablet 0.5 - 1 tab PO Q8H PRN (Reason: Pain) Discharge Orders: Discharge ED (Routine); Ordered 07/06/24 Ordered By: Jake Michael Referrals: Janae Chavarria MD [Primary Care Provider] - Discharge Diet: Usual diet Discharge Activity: Increase activity as tolerated Patient Instructions: Opioid Safety, Pain Management Activity Restrictions/Additional Instructions: Thank you for choosing [facility] for your healthcare needs today. It is very important that you follow up as instructed or that you return to the Emergency Department should you have concerns or if your condition changes or worsens in any way. You were seen in the emergency room with complaints of swelling in your leg evaluation for DVT did not show any signs of blood clot. Your other labs did not show any clinically significant abnormalities. Recommend he follow-up with orthopedics regarding rescheduling your surgery and pain control Print Language: Samoan Coding Level of Care Code ED Casing Wringer Operator for Katherine Garcia
[2024-07-06] MEDS: ketorolac 30 mg/mL INJ IVP (09:39)
[2024-07-06 09:40] VITALS: RESP 17; O2SAT 97
[2024-07-06] MEDS: morphine 4 mg/mL SDV 1 mL IVP ×2 (09:40→10:17)
[2024-07-06] MEDS: ondansetron 2 mg/ML SDV 2 mL 4 MG IVP (09:41)
[2024-07-06 09:43] VITALS: BP 151/115; PULSE 84; O2SAT 96
[2024-07-06 09:59] LABS: Basophils % 0.6 %; Eosinophils # 0.2 10^3/uL (0.0-0.8); Eosinophils % 3.5 %; Hematocrit 42.3 % (36-47); Lymphocytes # 1.9 10^3/uL (0.8-4.8); Lymphocytes % 27.2 %; Mean Corpuscular HGB Conc 32.2 g/dL (30-55); Mean Corpuscular Hemoglobin 27.7 pg (27-33); Mean Corpuscular Volume 86.2 fl (85-98); Mean Platelet Volume 9.1 fL (7.4-10.4); Monocytes # 0.7 10^3/uL (0.2-0.9); Monocytes % 9.9 %; Neutrophils # 3.98 10^3/uL (1.8-7.7); Neutrophils % 58.7 %; Nucleated Red Blood Cells % 0 %; Platelet Count 279 10^3/cmm (157-399); Red Blood Count 4.91 10^6/uL (3.85-5.65); Red Cell Distribution Width 17.1 % (12.1-15.1); White Blood Count 6.79 10^3/uL (3.29-11.43)
[2024-07-06 10:00] VITALS: BP 141/61; PULSE 78; O2SAT 96
[2024-07-06 10:17] VITALS: RESP 19; O2SAT 97
[2024-07-06 10:31] LABS: Alanine Aminotransferase 16 U/L (0-33); Albumin Level 3.9 g/dL (3.5-5.2); Alkaline Phosphatase 138 U/L (35-105); Anion Gap 16.8 (5-19); Aspartate Amino Transferase 18 U/L (0-32); Blood Urea Nitrogen 18 mg/dL (8-23); Calcium 9.1 mg/dL (8.5-10.5); Carbon Dioxide 24 mmol/L (22-29); Chloride 99 mmol/L (98-107); Creatinine Clr Calc Pharmacy 56.4452; Globulin 2.4 g/dL (1.3-4.6); Glomerular Filtration Rate 62.5 mL/min (90-130); Glucose 90 mg/dL (65-115); Osmolality Calculated 281 mOsm/kg (285-295); Potassium 4.8 mmol/L (3.5-5.1); Sodium 135 mmol/L (136-145); Total Bilirubin 0.3 mg/dL (0.15-1.2); Total Protein 6.3 g/dL (6.6-8.7)
[2024-07-06 11:16] VITALS: BP 154/87; PULSE 94; O2SAT 97
== END 2024-07-06 11:26 | disposition home or self-care (01) ==
PROVIDERS: Emergency Provider Family Medicine; PCP Family Medicine
DX: R60.0 Localized edema (principal); M16.11 Unilateral primary osteoarthritis, right hip; F17.210 Nicotine dependence, cigarettes, uncomplicated; I25.10 Atherosclerotic heart disease of native coronary artery without angina pectoris; I12.9 Hypertensive chronic kidney disease with stage 1 through stage 4 chronic kidney disease, or unspecified chronic kidney disease; N18.31 Chronic kidney disease, stage 3a
CPT/HCPCS: 36415; 71045; 80053; 85025; 93005; 93970; 96374; 96375; 96376; 99285; J1885; J2270; J2405

== ENCOUNTER → 2024-07-21 11:44 | Outpatient (BNVA) | payer MEDICARE, SELFPAY | PROVIDERS: PCP Family Medicine; Visit Provider Nurse Practitioner | DX: M16.11 Unilateral primary osteoarthritis, right hip (principal); T81.89XA Other complications of procedures, not elsewhere classified, initial encounter; Z01.82 Encounter for allergy testing; M85.60 Other cyst of bone, unspecified site; Z22.322 Carrier or suspected carrier of Methicillin resistant Staphylococcus aureus; X58.XXXA Exposure to other specified factors, initial encounter | CPT/HCPCS: 99213 ==

== ENCOUNTER → 2024-08-24 10:56 | Outpatient (BNVA) | payer MEDICARE, SELFPAY | PROVIDERS: PCP Family Medicine; Visit Provider Family Medicine | DX: R59.0 Localized enlarged lymph nodes (principal); R50.9 Fever, unspecified; R74.8 Abnormal levels of other serum enzymes; F17.210 Nicotine dependence, cigarettes, uncomplicated; N18.31 Chronic kidney disease, stage 3a; R11.0 Nausea; I10 Essential (primary) hypertension | CPT/HCPCS: 80053; 83615; 83690; 85025; 86140 ==

== ENCOUNTER 2024-08-25 06:00 | Outpatient (CLI) | payer MEDICARE, SELFPAY | END 2024-08-25 06:01 | disposition home or self-care (01) | LOC: LAB 08-26 13:29 | PROVIDERS: PCP Family Medicine; Visit Provider Family Medicine | DX: R59.0 Localized enlarged lymph nodes (principal); R50.9 Fever, unspecified; R74.8 Abnormal levels of other serum enzymes; F17.210 Nicotine dependence, cigarettes, uncomplicated; N18.31 Chronic kidney disease, stage 3a; R11.0 Nausea; I10 Essential (primary) hypertension | CPT/HCPCS: 85025 ==

== ENCOUNTER → 2024-08-30 16:05 | Outpatient (BNVA) | payer MEDICARE, SELFPAY | PROVIDERS: PCP Family Medicine; Visit Provider Family Medicine | DX: R74.8 Abnormal levels of other serum enzymes (principal); M25.50 Pain in unspecified joint | CPT/HCPCS: 84155; 84165; 84550; 86038; 86431 ==

== ENCOUNTER 2024-09-03 13:09 | Outpatient (CLI) | payer MEDICARE, SELFPAY ==
--- NOTE | 2024-09-03 13:14 | PETR_ITS ---
PROCEDURE INFORMATION: Exam: PET/CT Whole Body Exam date and time: 09/03/2024 2:17 PM Age: 69 years old Clinical indication: Condition or disease; Primary cancer: Bilateral breast; Prior surgery; Surgery date: 6+ months; Surgery type: Bilateral mastectomy; HX of uterine cancer; Additional info: Malignant neoplasm of both breasts, localized enlarged lymph LABS AND CLINICAL REPORTS: Glucose: 80 mg/dl Treatment strategy for malignancy (PET staging): Restaging (PS) TECHNIQUE: Imaging protocol: Following at least four-hour fasting and following the injection of radiopharmaceutical, low dose CT images were obtained. Then, PET images were obtained. Attenuation corrected images were constructed using the CT scan. Fused images of PET and CT were reviewed. The standardized uptake values (SUV) reported below are maximum values within a region of interest, expressed in gm/ml. Exam includes the whole body. SUV normalization method: BodyWeight Radiopharmaceutical: 12.05 mCi F-18 FDG (Fluorodeoxyglucose), IV. Time of imaging post radiopharmaceutical administration: 51 minutes Injection site: right ac COMPARISON: CT chest abdpel w/*[id number] 03/24/2024, CT abdomen pelvis 10/01/2017 FINDINGS: Brain: No abnormal uptake. Pharynx: No abnormal uptake. Larynx: No abnormal uptake. Lungs, pleura and trachea: No abnormal uptake. No lung nodules or masses. No pleural effusion. Heart: No abnormal uptake. There is no cardiomegaly. There is no pericardial effusion. Mediastinal space: No abnormal uptake. Liver: No abnormal uptake.Maximal uptake is 3 SUV. Gallbladder and biliary ducts: Unremarkable. Status post cholecystectomy. Pancreas: Normal distribution of radiotracer. Spleen: No abnormal uptake. Adrenal glands: No abnormal uptake. No nodules. Kidneys and ureters: Normal physiologic uptake in the left kidney. Mildly diminished uptake within severely atrophic right kidney. No hydronephrosis. Stomach and bowel: No abnormal uptake. Intraperitoneal and retroperitoneal spaces: No abnormal uptake. No ascites. No abnormal uptake. No ascites. Urinary bladder: Normal physiologic uptake. Reproductive: No abnormal uptake. The uterus is absent post surgically. No abnormal uptake. Vasculature: No abnormal uptake. Lymph nodes: No abnormal uptake. Skeleton: Increased synovial uptake in bilateral hip joints associated with significant degenerative changes is benign. Diffusely increased synovial uptake in the shoulders is benign. Low-grade uptake of 0.8 SUV exceeding normal uptake in the adjacent bone marrow in the right mid tibia (series 301, image 439) corresponding to 4 mm calcification noted on CT (series 402, image 161) likely represents benign finding of tiny enchondroma. Soft tissues: Status post bilateral mastectomy with breast implants in place. Triangular shaped area within the muscle above the right breast implant measuring 3.3 SUV with no abnormal enlargement of the muscle with no change in size in comparison with prior exam of 03/24/2024 is probably benign. Non FDG avid elongated cystic structure along the left posterior pelvic sidewall anteriorly to the left piriformis muscle (series 202 image [id number]) stable since the prior exam of 10/01/2017 represents benign incidental finding, possibly perineural cyst. PET/PET WB melanoma INITIAL [id number] IMPRESSION: No abnormal radiotracer uptake concerning for malignancy. Benign inflammatory uptake in the synovia of both hip joints and the shoulders associated with degenerative findings. No lymphadenopathy.
== END 2024-09-03 13:10 | disposition home or self-care (01) ==
PROVIDERS: PCP Family Medicine; Visit Provider Family Medicine
DX: Z85.3 Personal history of malignant neoplasm of breast (principal); Z90.49 Acquired absence of other specified parts of digestive tract; N26.1 Atrophy of kidney (terminal); Z98.890 Other specified postprocedural states; R93.7 Abnormal findings on diagnostic imaging of other parts of musculoskeletal system; Z98.82 Breast implant status; R93.89 Abnormal findings on diagnostic imaging of other specified body structures
CPT/HCPCS: 78816; 85025; A9552

== ENCOUNTER → 2024-10-15 07:59 | Outpatient (BNVA) | payer MEDICARE, SELFPAY | PROVIDERS: PCP Family Medicine; Visit Provider Thoracic Surgery (Cardiothoracic Vascular Surgery) | DX: L03.116 Cellulitis of left lower limb (principal) ==

== ENCOUNTER → 2024-10-22 09:13 | Outpatient (BNVA) | payer MEDICARE, SELFPAY | PROVIDERS: PCP Family Medicine; Visit Provider Thoracic Surgery (Cardiothoracic Vascular Surgery) | DX: R60.9 Edema, unspecified (principal); L03.115 Cellulitis of right lower limb; L03.116 Cellulitis of left lower limb | CPT/HCPCS: 87210; 99212 ==

== ENCOUNTER → 2024-11-08 13:51 | Outpatient (BNVA) | payer MEDICARE, SELFPAY | PROVIDERS: PCP Family Medicine; Visit Provider Nurse Practitioner | DX: M16.11 Unilateral primary osteoarthritis, right hip (principal) | CPT/HCPCS: 73502; 99214 ==

== ENCOUNTER → 2024-12-14 08:28 | Outpatient (BNVA) | payer MEDICARE, SELFPAY | PROVIDERS: PCP Family Medicine; Visit Provider Family Medicine | DX: Z01.818 Encounter for other preprocedural examination (principal) | CPT/HCPCS: 80053; 81003; 85025 ==

== ENCOUNTER 2024-12-27 07:22 | Outpatient (CLI) | payer MEDICARE, SELFPAY ==
--- NOTE | 2024-12-27 07:30 | CT_ITS ---
WS: [id number] CT RIGHT hip for DOREEN procedure HISTORY: M16.11 - Unilateral primary osteoarthritis, right hip Date: 12/27/2024 7:35 AM COMPARISON: Radiographs 11/08/2024 TECHNIQUE: Protocol for DOREEN total hip replacement has been obtained. This includes axial imaging from the hip joint through the knee joint. DLP: 790.33 mGy FINDINGS: Severe bilateral destructive changes involving the femoral heads. Loss of the normal femoral head cortex with mild lateral subluxation. Bilateral sclerosis and bony fragmentation. Subchondral changes involving the acetabulum. Changes are present and nearly symmetric bilaterally but slightly greater on the RIGHT. Interruption of the cortical bone involving many of the subchondral cysts. RIGHT knee: Negative. CT/CT hip RT [facility] [id number] IMPRESSION: CT imaging provided for [facility] robotic total knee replacement.
== END 2024-12-27 07:23 | disposition home or self-care (01) ==
LOC: RAD 07:22
PROVIDERS: PCP Family Medicine; Visit Provider Specialist
DX: M16.11 Unilateral primary osteoarthritis, right hip (principal); M85.60 Other cyst of bone, unspecified site; Z22.322 Carrier or suspected carrier of Methicillin resistant Staphylococcus aureus
CPT/HCPCS: 73502; 73700; 99214

== ENCOUNTER 2025-01-11 15:57 | Observation (INO) | payer MEDICARE, SELFPAY ==
[2025-01-11] VITALS (22 sets, daily range): BP systolic 80–151; BP diastolic 65–107; PULSE 18–101; RESP 16–20; TEMP 36.1–37; O2SAT 93–100; BMI 22.8
[2025-01-11] MEDS: acetaminophen 1,000 MG/100 ML PIGGYBACK 400 MG IV ×2 (11:29→18:04)
[2025-01-11] MEDS: tranexamic acid 1,000 mg/10mL SDV 1000 MG IV (12:31)
[2025-01-11] MEDS: BUPivacaine liposome 13.3 mg/mL SDV 20 mL 266 MG XX (14:10)
[2025-01-11] MEDS: BUPivacaine 0.5% INJ 30 mL 20 ML XX (14:10)
--- NOTE | 2025-01-11 16:00 | P.HPUD_ITS ---
Surgery/Procedure H&P Update DATE OF PROCEDURE: January 11, 2025 DATE H&P PERFORMED: 12/14/24 H&P UPDATE INFORMATION: I have reviewed H&P completed within last 30 days, I have examined patient prior to procedure, No changes to prior documentation, H&P is in [facility] EMR on date indicated and Risks and benefits of the procedure reviewed PLANNED PROCEDURE: Operation Date: 01/11/25 12:25 Proposed Procedures p RIGHT Total Hip Arthroplasty(Right) - Kamilla Rae MD Related Problem List Diagnoses 1. Osteoarthritis of right hip: 2. Avascular necrosis of bone of right hip: 3. History of metal allergy:
[2025-01-11] MEDS: fentaNYL 50 mcg/mL INJ 2mL IVP (16:13)
--- NOTE | 2025-01-11 16:14 | XRR_ITS ---
PROCEDURE INFORMATION: Exam: XR Pelvis Exam date and time: 01/11/2025 3:55 PM Age: 69 years old Clinical indication: Device placement; Other: Post op; Prior surgery; Surgery date: Post-operative (0-2 days); Surgery type: Hip TECHNIQUE: Imaging protocol: Radiologic exam of the pelvis. Views: 1 or 2 view. COMPARISON: CR XR hip RT 2-3V wo/w pel* [id number] 12/27/2024 2:28 PM FINDINGS: Bones/joints: There has been recent right hip replacement. The right hip prosthesis is in normal position. No acute fracture or dislocation. Severe end-stage degenerative changes in the left hip are again noted. Soft tissues: Postsurgical gas is present in the soft tissues surrounding the right hip. XR/XR pelvis 1-2V* [id number] IMPRESSION: 1. Status post right hip replacement. 2. End-stage degenerative changes again noted in the left hip.
[2025-01-11] MEDS: ondansetron 2 mg/ML SDV 2 mL 4 MG IVP ×2 (16:25→16:46)
[2025-01-11] MEDS: HYDROmorphone 1 mg/mL INJ 1ml 0.5 MG IVP ×2 (16:27→16:42)
--- NOTE | 2025-01-11 16:56 | PC.NURSE ---
This nurse took report from GAUTAM Wilson in PACU at [id number].
--- NOTE | 2025-01-11 17:06 | PM.OP ---
Operative Report Date of procedure: January 11, 2025 Pre-op diagnosis: Right hip severe degenerative osteoarthritis and imaging findings consistent with avascular necrosis with history of severe titanium allergy Post-op diagnosis: Right hip severe degenerative osteoarthritis and imaging findings consistent with avascular necrosis with history of severe titanium allergy Post-op findings: Complete obliteration of joint space and filling of the acetabulum with vascular fibrous tissue. Procedure done: Right total hip arthroplasty utilizing revision acetabular components, cemented, 9 titanium Implants: The Novae stainless steel Acetabular component and the cemented Gray total hip system with the following implants: Novae Stick 51 cemented stainless steel acetabular component, the Novae Insert XPOE-E 51/28 mm, a 28 mm x +4 mm ceramic [place] femoral head, the Size 4 Gray Accolade C, 127 degree neck angle hip stem, cemented, with a universal distal cement spacer, and [place] tobramycin cement Specimens removed/disposition: Femoral head sent to pathology Pathology: Femoral head Surgeon: Kamilla Rae MD Powder Cutting Operator: Nelda Mccain, nurse practitioner, who services were required for positioning, exposure, retraction, and closure Anesthesia: Spinal (With MAC, ASA 3) Estimated blood loss (mL): 850 IV fluids (mL): 2,000 Urine output (mL): 300 Complications: None Findings: Severe degenerative osteoarthritic change with filling of the acetabulum and femoral head with fibrous vascular inflammatory tissues. High riding femoral head. Hip stable at 90 degrees of flexion with 80 degrees of internal rotation and 30 degrees of adduction. He was also stable to toe ankle. There was a negative push pull test. Condition: stable Disposition: PACU (Then to floor for postoperative rehabilitation and pain management) Brief History: This 69-year-old woman presents to the office with complaints of severe bilateral hip pain. X-rays demonstrated severe femoral head collapse and loss of height with proximal migration of both femoral heads. The patient was scheduled initially for total hip arthroplasty, but on the day of surgery, she advised us that she had a significant titanium allergy and she was concerned regarding routine hip prostheses. Investigation was accomplished and revision components from the Novae hip system had stainless steel acetabulae available for cementing. Additionally, the Accolade cemented hip stem is a chrome cobalt hip stem. Therefore, election was made to perform a cemented total hip arthroplasty. She presented for surgery, equipment was available, but the patient had significantly swollen lower extremities which was new for her. She was seen and evaluated by her primary care and other appropriate specialist. She was cleared for surgery and surgery is scheduled for today. Risks and complications were discussed with her, and consents were signed. Procedure: Patient was brought to the operating theater.? She was transferred to the operating room table.? The patient had a spinal anesthesia, ASA 3 with MAC uneventfully.? Following administration of adequate anesthesia, the patient was placed in full lateral position and held in position with a pegboard.? The patient's right lower extremity was then prepped and draped in usual fashion utilizing DuraPrep.? It was draped free.? Following prepping and draping, a surgical pause was performed. At the time of surgical pause, we identified the site and side of surgery.? We also identified the patient and preoperative surgical markings.? Confirmation was made of equipment availability including appropriate equipment for cementing.? Additionally, the patient's preoperative IV antibiotic, vancomycin 1 g was confirmed as being given in a timely fashion and being the appropriate antibiotic.? She received TXA 1 g preoperatively as well 1 g postoperatively. Following the surgical pause, an incision was made centering over the patient's greater trochanter continuing proximally and distally as necessary to allow access to the hip joint.? Dissection continued through skin and soft tissues using a scalpel, and hemostasis was obtained using electrocautery. The tensor fascia cecilia was identified and incised longitudinally.? Sciatic nerve was identified and protected throughout the surgical procedure.? A Charnley U retractor was placed after the tensor fascia cecilia had been incised longitudinally, and the sciatic nerve had been identified.? The piriformis muscle was identified and tagged. Piriformis muscle along with the remaining short external rotators were then incised from the posterior aspect of the hip joint. These were retracted posteriorly. ? The capsule was entered in a T-type fashion with the edges being tagged. The hip was then dislocated.? Following hip dislocation, glenoid labrum was removed. There was significant soft tissue proliferation as well secondary to the deformities from avascular necrosis. The soft tissue was very vascular and nearly filled the acetabulum and portions of the femoral head. Hemostasis was obtained prior to proceeding with the actual total hip arthroplasty. A femoral neck osteotomy was accomplished in the appropriate position.? We then evaluated the acetabulum. Following femoral neck osteotomy, the femur was retracted anteriorly.? Soft tissues were removed from within the acetabulum prior to the reaming process.? We then began reaming, and further reactive soft tissue was removed..? We deepened the acetabulum utilizing a smaller reamer.? Evaluation of the acetabulum was accomplished, and we were able to ream to 51 mm to allow for a size 51 mm acetabular shell. The acetabular trial was impacted into position.? It was noted that the acetabular component matched the bony anatomy. ? Attention was directed to the proximal femur.? The proximal femur was lifted out of the wound.? A canal finder was passed, and we then used the reamer to lateralize.? We then began broaching. We broached sequentially and a size 4 Accolade gave excellent fit and fill.? With the size 4 broach, trial reduction was accomplished initially with a size +0 mm offset femoral head.? It was felt that there was some instability to the hip particularly with internal rotation, and we increased to a +4 mm offset femoral head. The patient was stable with this construct.? With this in place, we had the above stabilities, and at that time, we felt that we had restored normal leg lengths.? We also felt that we had excellent stability noted above. Therefore, trial components were removed after the hip was dislocated.? Preparation was made for cementing. The acetabulum initially was irrigated and subsequently dried. A lap sponge was placed into the acetabulum to dry it during the cementing preparation. Cement was prepared and the acetabulum was cemented into position and held until the cement had fully cured. This was accomplished without difficulty. After the cement had fully cured, the component was evaluated for any extruded cement or cement into the acetabulum, and where this was found it was removed. At that point, attention was directed to the femur. The femur was prepared for cementing including using a brush and the pulse lavage with a brush as well. The wick was placed into the femoral canal to allow any bleeding to be absorbed. This was left in place while the cement was prepared. Additionally, a lap sponge was placed into the acetabulum to avoid any cement from the femur inadvertently entering the acetabulum. After the cement was prepared and the cement gun, the cement was passed into the femoral canal. We did place a 9 mm universal distal cement spacer prior to placing cement into the canal. Once the cement was in the canal, the femur was placed and subsequently impacted into position. It also was held in an unchanged position during the cementing process and curing. Once the cement had fully cured remaining cement that had not been cleared during the curing process was further removed. Once this was in position, we evaluated the area to assure that there was no extruded cement either in the area of the acetabulum or femur, and preparation was made for placement of the femoral head and MDM style liner. The Novae insert was brought onto the field. The +4 x 28 mm Biolox ceramic femoral head was placed into this insert. This was impacted onto the proximal femur. The wound again was irrigated and the hip was reduced. Once again, we had the stability as noted above. The hip was reduced uneventfully. It was placed through range of motion and found to be stable. Being satisfied with the prosthesis, attention was directed to closure.? Exparel was injected in the soft tissue surrounding the hip. Closure was accomplished with 0 Vicryl in the capsular tissues.? Piriformis was reattached with 0 Vicryl as well.? Tensor fascia cecilia was closed with 0 Vicryl in an interrupted fashion.? The subcutaneous tissues were closed with 2-0 STRATAFIX.? Vancomycin powder and a Gelfoam thrombin mixture was placed into the wound as well.? The skin was closed with 3-0 STRATAFIX followed by Dermabond, Prineo, and Opsite.? The patient was placed in an abduction pillow.?The patient was then rolled onto her back. He was returned the Recovery Room in a satisfactory condition and will be discharged to the floor for postoperative rehabilitation and pain management.? There were no complications. Related Problem List Diagnoses 1. Avascular necrosis of bone of right hip: 2. Other secondary osteoarthritis of right hip: 3. Symptom of leg swelling:
--- NOTE | 2025-01-11 17:10 | ANE.PACU2 ---
Inpatient post-anesthesia follow up: Airway intact: Yes Vital signs: Temperature 98.0 F Pulse Rate 85 Respiratory Rate 18 Blood Pressure 110/65 Pulse Oximetry 100 Oxygen Delivery Me thod Room Air Oxygen Flow Rate 3 Fraction of Inspir ed Oxygen Hydration adequate: Yes Nausea and vomiting: No Pain level: 1 Mental status: Baseline
[2025-01-11] MEDS: chlorhexidine gluconate 0.12% Btl 473 mL 30 ML MUCOUS MEM ×2 (18:01→20:44)
[2025-01-11] MEDS: mupirocin oint 22 gm 1 APPLIC NASAL (18:02)
[2025-01-11] MEDS: sennosides-docusate Tablet 2 TAB PO (18:03)
[2025-01-11] MEDS: oxyCODONE 5 mg IR Tab/Cap PO ×2 (18:03→23:04)
[2025-01-11] MEDS: tranexamic acid 1,000 MG/100 ML PREMIX 600 MG IV (20:44)
[2025-01-12 03:39] VITALS: RESP 18; O2SAT 100
[2025-01-12] MEDS: acetaminophen 1,000 MG/100 ML PIGGYBACK 400 MG IV (03:39)
[2025-01-12] MEDS: oxyCODONE 5 mg IR Tab/Cap PO ×3 (03:39→11:40)
[2025-01-12] MEDS: mupirocin oint 22 gm 1 APPLIC TOPICAL (05:02)
[2025-01-12] MEDS: mupirocin oint 22 gm 1 APPLIC NASAL (05:02)
[2025-01-12] MEDS: sennosides-docusate Tablet 2 TAB PO (05:02)
[2025-01-12 05:13] LABS: Hematocrit 32.8 % (36-47); Hemoglobin 10.10 g/dL (11.27-16.99); Mean Corpuscular HGB Conc 30.8 g/dL (30-55); Mean Corpuscular Hemoglobin 27.4 pg (27-33); Mean Corpuscular Volume 89.1 fl (85-98); Nucleated Red Blood Cells % 0 %; Platelet Count 224 10^3/cmm (157-399); Red Blood Count 3.68 10^6/uL (3.85-5.65); White Blood Count 10.05 10^3/uL (3.29-11.43)
[2025-01-12 05:37] LABS: Alanine Aminotransferase 46 U/L (0-33); Albumin Level 3.4 g/dL (3.5-5.2); Alkaline Phosphatase 112 U/L (35-105); Anion Gap 13.2 (5-19); Aspartate Amino Transferase 56 U/L (0-32); Blood Urea Nitrogen 25 mg/dL (8-23); Calcium 7.9 mg/dL (8.5-10.5); Carbon Dioxide 23 mmol/L (22-29); Chloride 105 mmol/L (98-107); Creatinine Clr Calc Pharmacy 44.6190; Globulin 2.0 g/dL (1.3-4.6); Glucose 127 mg/dL (65-115); Osmolality Calculated 290 mOsm/kg (285-295); Potassium 4.2 mmol/L (3.5-5.1); Sodium 137 mmol/L (136-145); Total Protein 5.4 g/dL (6.6-8.7)
[2025-01-12 07:26] VITALS: BP 124/72; PULSE 77; RESP 16; TEMP 36.8; O2SAT 97
[2025-01-12 07:36] VITALS: RESP 18
[2025-01-12] MEDS: multivitamin therapeutic Tablet 1 TAB PO (07:36)
[2025-01-12] MEDS: chlorhexidine gluconate 0.12% Btl 473 mL 30 ML MUCOUS MEM ×2 (07:37→11:39)
--- NOTE | 2025-01-12 09:29 | PC.CHAP ---
Pastoral Care Encounter/Spiritual Assessment Type of Contact [] Declined clinical office technician visit [] Patient/Family/Request visit [] Outpatient visit [] Follow-up visit [] Physician referral [] Code/Alert [x] Routine visit [] Staff referral [] Actively dying [] Patient sleeping [] Family support [] [] Out of room [] Palliative care [] [] Receiving care in room [] Pre-surgical visit [] Trauma [] Long length of stay [] ICU visit [] Other: Relational/Emotional Strength [x] Patient feels connected with others/family/visitors/staff [] Distress [] Loneliness/isolation [] Abandonment Spirituality of Patient [x] Person of Tereza [] Attends Gnosticism of their Tereza [x] Believes in Prayer [] Reads Bible or Confucianist materials [] There are Spiritual issues to be addressed Sleep Technician Interventions [x] Prayer [x] Active listening [] Non-anxious presence [x] Spiritual/emotional support [] Crisis/trauma care [] Spiritual counseling [] Bereavement support [] Provided bereavement packet [] Provided Bible/devotional materials [] Provided toy/stuffed animal, coloring book to patient or family member [] Provided Communion [] Anointing/[place] [] Salvation [x] Completed spiritual assessment [] Other: Impact on Illness or Injury [] Angry [] Fearful [] Anxious [] Often cries [] Exhaustion [] Unable to work [] Unable to attend spiritism [] Unable to walk/stand [] Unable to read [] Unable to drive [] Unable to eat/drink [] Unable to sleep [] Unable to be with family [] Patient intubated [] Other: Summary Time spent with patient 5 min
[2025-01-12 11:23] VITALS: BP 117/74; PULSE 95; RESP 16; TEMP 36.6; O2SAT 99
[2025-01-12 11:40] VITALS: RESP 16
--- NOTE | 2025-01-12 13:29 | PM.DCS ---
Discharge Providers Date of Admission: 01/11/25 15:57 Date of Discharge: January 12, 2025 Attending Provider at Admission: Kamilla Rae MD Attending Provider at Discharge: Kamilla Rae MD Primary Care Provider: Janae Chavarria MD Diagnoses at Discharge Discharge Diagnosis 1. S/P total right hip arthroplasty: 2. Avascular necrosis of bone of right hip: 3. Other secondary osteoarthritis of right hip: 4. Symptom of leg swelling: Details from hospital stay: This was chronic and present preoperatively with approval for surgical intervention Reason for Visit Reason for Visit: M16.11 Brief History: This 69-year-old woman presents to the office with complaints of severe bilateral hip pain. X-rays demonstrated severe femoral head collapse and loss of height with proximal migration of both femoral heads. The patient was scheduled initially for total hip arthroplasty, but on the day of surgery, she advised us that she had a significant titanium allergy and she was concerned regarding routine hip prostheses. Investigation was accomplished and revision components from the Novae hip system had stainless steel acetabulae available for cementing. Additionally, the Accolade cemented hip stem is a chrome cobalt hip stem. Therefore, election was made to perform a cemented total hip arthroplasty. She presented for surgery, equipment was available, but the patient had significantly swollen lower extremities which was new for her. She was seen and evaluated by her primary care and other appropriate specialist. She was cleared for surgery and surgery is scheduled for today. Risks and complications were discussed with her, and consents were signed. Hospital Course Hospital Course Patient was admitted following cemented right total hip arthroplasty. She has a titanium allergy which made her surgical procedure complex. A revision style stainless steel acetabular component was utilized and cemented into place. The stem was also cemented into place to protect the patient from the titanium. She was admitted after an uneventful total hip arthroplasty, and postoperatively, she noted that a significant degree of her pain was gone. She was quite happy at the time of discharge. She was independent and ready to be discharged with no evidence of DVT or neuro logic issue. She was discharged to home and will follow-up with me in the office as scheduled. Physical Exam Const: COMMON NORMALS: no acute distress, average body habitus, patient oriented x3 and alert GENERAL APPEARANCE: cooperative and comfortable ORIENTATION/CONSCIOUSNESS: Yes awake HENMT: COMMON NORMALS: normocephalic and atraumatic HEAD & SCALP: normocephalic and atraumatic Eye: GENERAL EYE: appearance normal, both eyes and all related structures Chest: COMMONS NORMALS: normal inspection of the chest Resp: COMMON NORMALS: normal respiratory effort EFFORT & INSPECTION: Yes able to speak in complete sentences and Yes symmetric chest movement Extremity: RIGHT LOWER EXTREMITY: Yes hip joint (Dressing dry and intact) Right hip: Yes inspection (Minimal to no ecchymosis), Yes palpation (No tenderness), Yes ROM (Not evaluated) and Yes neurovascular exam (Intact distally) Neuro: COMMON NORMALS: patient oriented x3 SENSORIUM/ORIENTATION: Yes alert Psych: COMMON NORMALS: mental status grossly normal APPEARANCE: Yes grossly normal ATTITUDE: Yes calm and Yes engaged ATTENTION/CONCENTRATION: Yes attention grossly intact Skin: COMMON NORMALS: no rashes or lesions noted GENERAL SKIN EXAM: no rashes or lesions noted Urinary Catheter Management: Lyman: Cath Placed During This Visit: yes, but has since been removed by the nurse Reason for Continuing Indwelling Catheter: Decision to DC Catheter Urinary Catheter Date of Insertion: 01/11/25 Urinary Catheter Time of Insertion: 12:45 Date Urinary Catheter Removed: 01/12/25 Time Urinary Catheter Discontinued: 05:30 Discharge Data Studies Completed and Pending Completed Studies During Hospitalization Category Date Time Status XR pelvis 1-2V* [id number] Routine Exams 01/11/25 16:14 Completed Pending at discharge Category Date Time Status Pathology: Surgical [PTH] Routine Pth 01/11/25 15:23 Received Radiology Impressions Pelvis X-Ray 01/11/25 16:14 IMPRESSION: 1. Status post right hip replacement. 2. End-stage degenerative changes again noted in the left hip. Laboratory Results WBC 10.05 10^3/uL (3.29-11.43) 01/12/25 04:38 RBC 3.68 10^6/uL (3.85-5.65) L 01/12/25 04:38 Hgb 10.10 g/dL (11.27-16.99) L 01/12/25 04:38 Hct 32.8 % (36-47) L 01/12/25 04:38 MCV 89.1 fl (85-98) 01/12/25 04:38 MCH 27.4 pg (27-33) 01/12/25 04:38 MCHC 30.8 g/dL (30-55) 01/12/25 04:38 RDW 18.4 % (12.1-15.1) H 01/12/25 04:38 Plt Count 224 10^3/cmm (157-399) 01/12/25 04:38 MPV 10.0 fL (7.4-10.4) 01/12/25 04:38 Neut % (Auto) 76.4 % 01/12/25 04:38 Lymph % (Auto) 12.6 % 01/12/25 04:38 Emanuel % (Auto) 10.5 % 01/12/25 04:38 Eos % (Auto) 0.0 % 01/12/25 04:38 Baso % (Auto) 0.1 % 01/12/25 04:38 Neut # (Auto) 7.67 10^3/uL (1.8-7.7) 01/12/25 04:38 Lymph # (Auto) 1.3 10^3/uL (0.8-4.8) 01/12/25 04:38 Emanuel # (Auto) 1.1 10^3/uL (0.2-0.9) H 01/12/25 04:38 Eos # (Auto) 0.0 10^3/uL (0.0-0.8) 01/12/25 04:38 Baso # (Auto) 0.0 10^3/uL (0.0-0.1) 01/12/25 04:38 Nucleated RBC % (auto) 0 % 01/12/25 04:38 Nucleated RBCs # 0.0 /100WBC 01/12/25 04:38 Sodium 137 mmol/L (136-145) 01/12/25 04:38 Potassium 4.2 mmol/L (3.5-5.1) 01/12/25 04:38 Chloride 105 mmol/L (98-107) 01/12/25 04:38 Carbon Dioxide 23 mmol/L (22-29) 01/12/25 04:38 Anion Gap 13.2 (5-19) 01/12/25 04:38 BUN 25 mg/dL (8-23) H 01/12/25 04:38 Creatinine 1.1 mg/dL (0.5-0.9) H 01/12/25 04:38 GFR Calculation 49.5 mL/min (90-130) L 01/12/25 04:38 Glucose 127 mg/dL (65-115) H 01/12/25 04:38 Calculated Osmolality 290 mOsm/kg (285-295) 01/12/25 04:38 Calcium 7.9 mg/dL (8.5-10.5) L 01/12/25 04:38 Total Bilirubin 0.3 mg/dL (0.15-1.2) 01/12/25 04:38 AST 56 U/L (0-32) H 01/12/25 04:38 ALT 46 U/L (0-33) H 01/12/25 04:38 Alkaline Phosphatase 112 U/L (35-105) H 01/12/25 04:38 Total Protein 5.4 g/dL (6.6-8.7) L 01/12/25 04:38 Albumin 3.4 g/dL (3.5-5.2) L 01/12/25 04:38 Globulin 2.0 g/dL (1.3-4.6) 01/12/25 04:38 Vitals Last Vital Signs Temp 97.8 F 01/12/25 11:23 Pulse 95 01/12/25 11:23 Resp 16 01/12/25 11:40 BP 117/74 01/12/25 11:23 Pulse Ox 99 01/12/25 11:23 O2 Del Method Room Air 01/12/25 11:23 O2 Flow Rate 3 01/11/25 19:33 Discharge Plan Discharge Patient Disposition: Home Health Service Condition: Stable Prescriptions: New acetaminophen 500 mg Tablet 1,000 mg PO Q8H 15 Days Qty: 90 0RF aspirin 325 mg Tablet,Delayed Release (Dr/Ec) 325 mg PO DAILY 30 Days Qty: 30 0RF oxycodone 5 mg Tablet 5 mg PO Q4H PRN (Reason: Moderate To Severe Pain) 7 Days Qty: 30 0RF Continued mupirocin 2 % ointment 1 applic topical BID 7 Days Qty: 15 0RF Rx Instructions: Apply to each nare BID for 7 days. levothyroxine 175 mcg tablet 175 mcg PO DAILY Qty: 90 1RF clonazepam [Klonopin] 0.5 mg tablet 0.5 mg PO DAILY PRN (Reason: anxiety) Qty: 30 2RF ondansetron HCl 8 mg tablet 8 mg PO Q6H PRN (Reason: Nausea And Vomiting) Qty: 90 1RF tizanidine 4 mg tablet 4 mg PO DAILY PRN (Reason: Muscle Spasm) hydrocodone-acetaminophen 5-325 mg tablet 0.5 - 1 tab PO Q8H PRN (Reason: Pain) Held meloxicam 15 mg tablet 15 mg PO DAILY PRN (Reason: pain) Qty: 30 2RF Hold Instructions: Until you have finished your acute oxycodone. Discharge Order = DC NOW: Discharge Order (Routine); Ordered 01/12/25 Ordered By: Kamilla Rae Referrals: Kamilla Rae MD [Physician, Orthopedics] - 01/26/25 10:45 am Discharge Diet: Advance as tolerated and Usual diet Discharge Activity: Increase activity as tolerated, Limit activity as instructed, Use walker/crutches as instructed and As per PT/OT instructions Patient Instructions: Acute Wound Care (DC), Opioid Safety, Post Anesthesia Care, Patient Portal & Christian Instructions Activity Restrictions/Additional Instructions: Posterior hip precautions. Patient may be weightbearing as tolerated. Do not submerge her hip in water, but you may shower routinely and allow water to run over the hip. If the dressing begins to leak, please remove it and leave the Steri-Strips in place. Discharge Attestations Time Spent in Discharge Care*: greater than 30 min Specific Discharge Activities: educating patient, documenting/other paperwork and evaluating patient/reviewing data Quality Metrics Clinical Quality Measures [ No reported AMI, CVA or VTE this stay] Coding Level of Care Code Acute Code for Chg Fwd Diagnoses S/P total right hip arthroplasty Z96.641 Avascular necrosis of bone of right hip M87.051 Other secondary osteoarthritis of right hip M16.7 Osteoarthritis type: other secondary Symptom of leg swelling M79.89
[2025-01-12 14:19] VITALS: BP 118/76; PULSE 95; O2SAT 99
== END 2025-01-12 14:19 | disposition home health service (06) ==
LOC: MEDSURG 15:57
PROVIDERS: Orthopaedic Surgery; Admitting Provider Specialist; PCP Family Medicine; Visit Provider Specialist
PROC: (CPT 27130; principal; 2025-01-11 11:55)
DX: M16.11 Unilateral primary osteoarthritis, right hip (principal); M87.051 Idiopathic aseptic necrosis of right femur; I12.9 Hypertensive chronic kidney disease with stage 1 through stage 4 chronic kidney disease, or unspecified chronic kidney disease; N18.31 Chronic kidney disease, stage 3a; Z86.718 Personal history of other venous thrombosis and embolism; G47.33 Obstructive sleep apnea (adult) (pediatric); F17.210 Nicotine dependence, cigarettes, uncomplicated; Z84.1 Family history of disorders of kidney and ureter; I25.10 Atherosclerotic heart disease of native coronary artery without angina pectoris; E03.9 Hypothyroidism, unspecified
CPT/HCPCS: 27130; 36415; 51702; 72170; 80053; 85025; 88304; 88311; 97110; 97116; 97161; 97167; A4216; C1713; C1776; G0378; J0131; J0666; J1100; J1171; J2250; J2405; J2704; J3010; J3373; J3490; J7030; J7050; J9999; L8699; P9045; Q0162

== ENCOUNTER → 2025-01-26 10:51 | Outpatient (BNVA) | payer MEDICARE, SELFPAY | PROVIDERS: PCP Family Medicine; Visit Provider Specialist | DX: Z98.890 Other specified postprocedural states (principal); Z96.641 Presence of right artificial hip joint | CPT/HCPCS: 73502; 99024 ==

== ENCOUNTER 2025-02-06 15:23 | Emergency (ER) | payer MEDICARE, SELFPAY ==
[2025-02-06 15:27] VITALS: BP 147/80; PULSE 93; RESP 17; TEMP 36.8; O2SAT 97; BMI 25.2
--- OUTSIDE RECORDS SUMMARY | 2025-02-06 15:28 | XMS_ITS | Clinical Summary ---
Author Organization [facility] Facility Address [address] [address] Care Team Providers Care Siphoner Name Role Phone Baudilio Lorenzana MD Primary Care Provider [phone] Allergies Active Allergy Reactions Criticality Noted Date Comments Propoxyphene Other (see comments) 11/06/2018 Meperidine Hcl Other (see comments) 11/06/2018 Erythromycin Other (see comments) 11/06/2018 Naproxen Other (see comments) 11/06/2018 Nitrofurantoin Other (see comments) 11/06/2018 Penicillins Other (see comments) 11/06/2018 Sulfa Antibiotics Other (see comments) 11/07/19 19 Titanium 11/06/2018 Medications * This document contains information received from the source organization and may not represent a complete record from that organization. hydroCHLOROthiaz corinna (HYDRODIURIL) 25 MG tablet Take 1 tablet by mouth 1 (one) time each day if needed 10/13/2017 Active zolpidem (AMBIEN) 5 MG tablet Take 1 tablet by mouth at night if needed 0 08/13/2018 Active SUMAtriptan (IMITREX) 100 MG tablet Take 1 tablet by mouth 1 (one) time each day if needed Active ondansetron (ZOFRAN) 8 MG tablet Take 1 tablet by mouth 3 (three) times a day Active pantoprazole (PROTONIX) 40 MG EC tablet Take 1 tablet by mouth 1 (one) time each day if needed 6 08/31/2018 Active levothyroxine (SYNTHROID) 137 MCG tablet Take 1 tablet by mouth 1 (one) time each day Active clonazePAM (KlonoPIN) 0.5 MG tablet Take 0.5 mg by mouth every night Active Active Problems Problem Noted Date Diagnosed Date Chronic kidney disease stage 3 11/06/2018 Edema of lower extremity 11/06/2018 Vesicoureteric reflux 11/06/2018 Resolved Problems Problem Noted Date Diagnosed Date Resolved Date Nicotine dependence 11/06/2018 11/07/19 19 Family History Medical History Relation Comments Cancer Father Hypertension Mother Kidney disease Mother Cancer Sibling Relation Status Comments Father Mother Alive Sibling Social History Tobacco Use Types Packs/Day Years Used Date Smoking Tobacco: Every Day Cigarettes Smokeless Tobacco: Never Alcohol Use Standard Drinks/Week Comments Yes 0 (1 standard drink = 0.6 oz pure alcohol) Alcoholic Drinks/day: Occasional social drink Comments Unknown Sex and Gender Information Value Date Recorded Sex Assigned at Not on file Legal Sex Female 12:46 PM EST Gender Identity Not on file Sexual Orientation Not on file Last Filed Vital Signs Vital Sign Reading Time Taken Comments Blood Pressure 116/80 12/08/2019 12:54 PM CDT Pulse 86 12/08/2019 12:54 PM CDT Temperature 37.2 C (98.9 F) 12/08/2019 12:54 PM CDT Respiratory Rate - - Oxygen Saturation - - Inhaled Oxygen Concentration - - Weight 74.3 kg (163 lb 12.8 oz) 020 12:54 PM CDT Height 165.1 cm (5' 5 ) 12/08/2019 12:5 4 PM CDT Body Mass Index 27.26 12/08/2019 12:54 PM CDT Plan of Treatment Health Maintenance Due Date Last Done Comments Breast Cancer Screening 1955 Pneumococcal Vaccine: 50+ Ye ars (1 of 2 - PCV) 1976 Colorectal Cancer Screening: Annual FOBT 2006 Colorectal Cancer Screening: Colonoscopy 2006 Colorectal Cancer Screening: Sigmoidoscopy 2006 Influenza Vaccine (#1) 2025 Hepatitis B Vaccine Aged Out No longe r eligible based on patient's age to complete this topic Insurance [facility] Care Teams Siphoner Relationship Specialty Start Date End Date Baudilio Lorenzana MD [address] [place] [phone] PCP - General Internal Medicine 10/21/18
--- OUTSIDE RECORDS SUMMARY | 2025-02-06 15:28 | XMS_ITS | Encounter Summary ---
Author Organization [facility] Address [address] [facility] [address] [place] [address] Phone Care Team Providers Care Outside Physical Damage Appraiser Name Role Phone Baudilio Lorenzana MD Primary Care Provider [phone] Encounter Details Date Type Department Care Team (Late st Contact Info) Description 05/08/2019 Orders Only [facility] [address] [place] [id number] Manuel Logan, RESEARCH ASSISTANT Chronic kidney disease stage 3 (HCC) Social History Tobacco Use Types Packs/Day Years [...] on file Sexual Orientation Not on file documented as of this encounter Plan of Treatment Not on file documented as of this encounter Procedures Procedure Name Priority Date/Time Associated Diagnosis Comments URINE ALBUMIN / CREATININE RATIO Routine 05/04/2019 12:45 PM COMMUNICATIONS DEPARTMENT CHAIR Chronic kidney disease stage 3 (HCC) VITAMIN D 25 HYDROXY Routine 05/04/2019 12:37 PM COMMUNICATIONS DEPARTMENT CHAIR Chronic kidney disease stage 3 (HCC) CBC Routine 05/04/2019 12:37 PM COMMUNICATIONS DEPARTMENT CHAIR Chronic kidney disease stage 3 (HCC) PTH, INTACT Routine 05/04/2019 12:37 PM COMMUNICATIONS DEPARTMENT CHAIR Chronic kidney disease stage 3 (HCC) documented in this encounter Results * Urine albumin / creatinine ratio (05/04/2019 12:45 PM COMMUNICATIONS DEPARTMENT CHAIR) Microalbumin 8.4 mg/dL Creatinine, Urine Random 104.4 mg/dL Microalb/Creat Ratio 80 30 - 300 mg/dL Urine specimen (specimen) Urine specimen obtained by clean catch procedure / Unknown 05/04/2019 12:45 PM COMMUNICATIONS DEPARTMENT CHAIR Mable Ayala MA - 05/05/2019 8:37 AM COMMUNICATIONS DEPARTMENT CHAIR [facility] [address] [place] [id number] Manuel Logan RESEARCH ASSISTANT LAB URINE ORDERABLES Final Result * Vit D 25 hydroxy (05/04/2019 12:37 PM COMMUNICATIONS DEPARTMENT CHAIR) Vitamin D, 25-OH, Total 44 ng/mL Blood specimen (specimen) Venous blood / Unknown 05/04/2019 12:37 PM COMMUNICATIONS DEPARTMENT CHAIR Mable Ayala MA - 05/05/2019 8:37 AM COMMUNICATIONS DEPARTMENT CHAIR [employer] lab [facility] [address] [place] [id number] Manuel Logan RESEARCH ASSISTANT LAB BLOOD ORDERABLES Final Result * PTH, intact (05/04/2019 12:37 PM COMMUNICATIONS DEPARTMENT CHAIR) Parathyroid Hormone, Intact 77.9 pg/mL Blood specimen (specimen) Venous blood / Unknown 05/04/2019 12:37 PM COMMUNICATIONS DEPARTMENT CHAIR Mable Ayala MA - 05/05/2019 8:36 AM COMMUNICATIONS DEPARTMENT CHAIR ship's captain lab [facility] [address] [place] [id number] Manuel Logan RESEARCH ASSISTANT LAB BLOOD ORDERABLES Final Result * CBC (05/04/2019 12:37 PM COMMUNICATIONS DEPARTMENT CHAIR) WBC 5.7 K/uL Red Blood Cell Count 5.08 Hemoglobin 14.6 g/dL Hematocrit 44.7 % MCV 88.0 MCH 28.7 MCHC 32.7 RDW 16.6 Platelet Count 192 MPV 10.7 Absolute Neutrophils 2.7 Absolute Lymphocytes 2.2 Absolute Monocytes 0.6 Absolute Eosinophils 0.2 Absolute Basophils 0.0 Neutrophils 47.5 K/uL Lymphocytes 38.1 Monocytes 10.7 Eosinophils 3.0 Basophils 0.5 Blood specimen (specimen) Venous blood / Unknown 05/04/2019 12:37 PM COMMUNICATIONS DEPARTMENT CHAIR Narrative Mable Villegas MA - 05/05/2019 8:39 AM COMMUNICATIONS DEPARTMENT CHAIR ship's captain lab [facility] [address] [place] [id number] Manuel Logan RESEARCH ASSISTANT LAB BLOOD ORDERABLES Final Result documented in this encounter Visit Diagnoses Diagnosis Chronic kidney disease stage 3 (HCC) documented in this encounter Care Teams Outside Physical Damage Appraiser Relationship Specialty Start Date End Date Baudilio Lorenzana MD [address] [place] [id number] PCP - General Internal Medicine 10/21/18 documented as of this encounter
--- NOTE | 2025-02-06 16:58 | W.ED.EXTPRO ---
HPI - Extremity Problem General: Chief complaint: Extremity Problem,Nontraumatic Stated complaint: urgent care, 3 weeks post op hip, R leg swelling Time Seen by Provider: 02/06/25 15:30 Source: patient Mode of arrival: wheelchair Limitations: no limitations History of Present Illness: Patient is a 69-year-old female presents to ED today from the walk-in clinic. She states she underwent hip replacement by Dr. Rae on 01/11. She states she has been doing well and doing her physical therapy. She had what she described as normal post-op swelling to the right leg but was not concerned. On Friday of this week, she began noticing some redness to her anterior right lower leg. She states she reached out to Dr. Rae's office and they felt it might be cellulitis. She states she had some leftover doxycycline so began taking that and has been taking 100 mg twice daily since Friday. She states since then leg swelling has worsened as well as the redness and now she is having redness and swelling involving the left leg as well. She has also noticed some redness surrounding her incision site to her right hip. She is not running fevers. She does not describe any increased pain of the right hip. She states she has had a headache and has felt nauseous. MD Complaint: extremity pain and extremity swelling Onset (ago): day(s) Pain Consistency: constant Location: left, right and lower extremity Radiation: none Relieving factors: nothing Exacerbating factors: nothing Associated symptoms: Reports no associated symptoms and rash; Deny chest pain or fever(s) Context: recent surgery/procedure and other (hx MRSA/infected ortho hardware) Related Data Home Medications ?Medication ?Instructions ?Recorded ?Confirmed hydrocodone 5 mg-acetaminophen 325 0.5 - 1 tab PO Q8H PRN Pain 07/06/24 02/06/25 mg tablet tizanidine 4 mg tablet 4 mg PO DAILY PRN Muscle Spasm 07/06/24 02/06/25 doxycycline hyclate 100 mg capsule 100 mg PO BID 02/06/25 02/06/25 Previous Rx's ?Medication ?Instructions ?Recorded mupirocin 2 % topical ointment 1 applic topical BID 7 days #15 05/31/24 grams clonazepam 0.5 mg tablet (Klonopin) 0.5 mg PO DAILY PRN anxiety #30 07/08/24 tabs levothyroxine 175 mcg tablet 175 mcg PO DAILY #90 tabs 08/24/24 meloxicam 15 mg tablet 15 mg PO DAILY PRN pain #30 tabs 08/24/24 Held on 01/12/25. Instructions: Until you have finished your acute oxycodone. ondansetron HCl 8 mg tablet 8 mg PO Q6H PRN Nausea And 12/10/24 Vomiting #90 tabs aspirin 325 mg tablet,delayed 325 mg PO DAILY 30 days #30 tabs 01/12/25 release oxycodone 5 mg tablet 5 mg PO Q4H PRN Moderate To Severe 01/26/25 Pain 7 days #40 tabs furosemide 40 mg tablet (Lasix) 40 mg PO QAM edema #5 tabs 02/06/25 Allergies Allergy/AdvReac Type Severity Reaction Status Date / Time Penicillins Allergy Severe ALGY-Anaphy Verified 02/06/25 14:51 laxis aluminum Allergy Unknown Verified 02/06/25 14:51 ciprofloxacin (From Cipro) Allergy rash Verified 02/06/25 14:51 erythromycin base Allergy rash Verified 02/06/25 14:51 nitrofurantoin (From Allergy hives Verified 02/06/25 14:51 Macrodantin) propoxyphene (From Darvon) Allergy rash Verified 02/06/25 14:51 Sulfa (Sulfonamide Allergy rash Verified 02/06/25 14:51 Antibiotics) titanium Allergy Unknown Verified 02/06/25 14:51 Review of Systems Const: Denies: fever(s), chills, body aches, fatigue or malaise Card: Denies: chest pain, syncope or pre-syncope Resp: Denies: dyspnea, pain on inspiration or chest congestion GI: Reports: nausea; Denies: abdominal pain, vomiting or change in bowel habits : Denies: flank pain, difficulty voiding, dysuria, urinary frequency, urinary urgency or urinary hesitancy Musc: Reports: extremity pain, extremity swelling and joint pain (R hip but improving since surgery); Denies: neck pain or back pain Skin/Breast: Reports: rash and erythema Neuro: Denies: headache(s), numbness in extremities, weakness in extremities or sensory changes PFS ED PFSH: Medical History Elastofibroma of left posterior chest; MRI of [facility] shows this 7.2.25 Joint pain Axillary lymphadenopathy Chronic nausea Enrolled in chronic care management Abnormal alkaline phosphatase test TREVOR (obstructive sleep apnea) not using CPAP Mitral valve prolapse Refusal of statin medication by patient Chronic pain pain meds through pain clinic [facility] Nicotine dependence, cigarettes, uncomplicated Lumbar back pain Diverticulosis Family hx of colon cancer brother and dad CAD (coronary artery disease) has had angioplasty twice; refuses statins History of bilateral breast cancer bilateral mastectomy; no radiation or chemo; sees Dr. Brandt at [facility] Knee pain, right Need for antibiotic prophylaxis for dental procedure CKD stage 3a, GFR 45-59 ml/min atrophic Right History of uterine cancer hyst only Bipolar disorder, in partial remission, most recent episode manic Essential (primary) hypertension Acquired hypothyroidism History of colon polyps Surgical History Hx of hand surgery Right middle finger knuckle replaced in [facility] History of surgery on lower extremity Left lower leg--had fx, surgery, then infected so had hardware removed later History of mandibular surgery R jaw--done b/c of infection in bone after root canal History of surgery of head R hindu; not a craniotomy Hx of colonoscopy with polypectomy hx of >20 polyps removed; Hx of hysterectomy ovaries remaining; done for uterine cancer History of kidney surgery had ureter surgery bilaterally; H/O left mastectomy H/O right mastectomy History of cholecystectomy History of hernia repair R abdominal X 2 History of colonoscopy History of angioplasty cardiac; has had angioplasty X 2--last time at [facility] History of appendectomy History of elbow surgery Right History of esophagogastroduodenoscopy (EGD) Family History Mother Alzheimer's dementia Sister Alzheimer's dementia Grandmother Aneurysm cerebral Father Colon cancer Grandfather Cancer kidney Brother Colon cancer Sister Cancer Lymphoma Other Kidney disease Social History Smoking and tobacco/nicotine status: current every day tobacco/nicotine user cigarettes Packs smoked per day: 0.75 [ Other cigarette details: 27pk yr hx; started age 32] Alcohol intake: current Alcohol intake frequency: few times a month Alcohol type: beer Substance/Drug Use: never Household members: spouse Marital status: Number of children: 0 Highest education level completed: Some College, No Degree Current occupational status: retired Previous occupational history: corporate credit collections specialist Female Reproductive History: Date of menopause: 05/26/94 Physical Exam Const: COMMON NORMALS: no acute distress, average body habitus, patient oriented x3, no limitations, healthy appearing, alert and well nourished GENERAL APPEARANCE: cooperative ORIENTATION/CONSCIOUSNESS: Yes awake, Yes oriented to person, Yes oriented to place and Yes oriented to time Resp: COMMON NORMALS: normal respiratory effort and clear to auscultation bilaterally AUSCULTATION: clear to auscultation bilaterally Cardio: COMMON NORMALS: regular rate and regular rhythm RATE: regular rate RHYTHM: regular rhythm Back/Pelvis: COMMON NORMALS: thoracic and lumbar spine normal to inspection Extremity: COMMON NORMALS: capillary refill normal GENERAL: Yes normal exam except as noted OTHER: pt has symmetrical bilateral knee down pitting edema; she has an erythematous, not warm to the touch, rash affecting mainly anterior aspects of legs; she complains of some mild erythema (hard to fully appreciate this clinically) to the R hip incision-she is not overly tender here and still has ROM that I would not consider painful out of proportion to exam-clinically I do not have a concern for septic arthritis Neuro: COMMON NORMALS: patient oriented x3, moves all extremities, no focal motor deficits and no sensory deficits noted SENSORIUM/ORIENTATION: Yes alert, Yes oriented to person, Yes oriented to place and Yes oriented to time Skin: RASHES: rashes noted (bilateral legs) Course Vital Signs: Vital signs: Vital Signs Temperature 98.2 F 02/06/25 15:27 Pulse Rate 81 02/06/25 19:25 Respiratory Rate 18 02/06/25 19:25 Blood Pressure 150/98 02/06/25 19:25 Pulse Oximetry 95 02/06/25 19:25 Oxygen Delivery Me thod Room Air 02/06/25 19:08 MDM - Extremity (Nontraumatic) Medical Decision Making Patient here for complaint of bilateral leg swelling and anterior lower extremity rash. She underwent right hip arthroplasty a month ago by Dr. Rae. She is not complaining of hip pain and feels like this is healing appropriately. She has not been running fevers. She has normal range of motion of the hip. I would have a low suspicion for a bilateral bacterial cellulitis. US performed here showing no DVT. Her vital signs are normal. She has a normal white count, normal CRP, normal ESR, normal lactic. I think this probably is more of a stasis dermatitis. Looking at previous documentation, she has had similar symptoms in the past. At one point they thought it could be fungal dermatitis but had a normal NOHEMY. She has been taking doxycycline with no improvement would be expected as I do not have a concern this is bacterial. I think it is reasonable to place her on some Lasix over the next few days to help with the edema and have her elevate the extremities. Will try to get her in to see dermatology. Hold off on additional antibiotics and oral antifungals. Return to ED precautions discussed. Medical Records I reviewed the patient's medical records. Lab Data I reviewed the patient's lab results. 02/06/25 16:56 02/06/25 16:56 Radiology Impressions Chest X-Ray 02/06/25 17:08 IMPRESSION: 1. No acute cardiopulmonary disease or adverse interval change radiographically. 2. Generalized moderate skeletal degenerative and other chronic/nonacute findings as described above. Venous Duplex 02/06/25 17:08 IMPRESSION: No evidence of deep vein thrombosis. Laboratory Results WBC 6.53 10^3/uL (3.29-11.43) 02/06/25 16:56 RBC 3.80 10^6/uL (3.85-5.65) L 02/06/25 16:56 Hgb 10.50 g/dL (11.27-16.99) L 02/06/25 16:56 Hct 32.7 % (36-47) L 02/06/25 16:56 MCV 86.1 fl (85-98) 02/06/25 16:56 MCH 27.6 pg (27-33) 02/06/25 16:56 MCHC 32.1 g/dL (30-55) 02/06/25 16:56 RDW 17.3 % (12.1-15.1) H 02/06/25 16:56 Plt Count 338 10^3/cmm (157-399) 02/06/25 16:56 MPV 9.2 fL (7.4-10.4) 02/06/25 16:56 Neut % (Auto) 48.5 % 02/06/25 16:56 Lymph % (Auto) 33.2 % 02/06/25 16:56 Whitley % (Auto) 12.6 % 02/06/25 16:56 Eos % (Auto) 4.7 % 02/06/25 16:56 Baso % (Auto) 0.5 % 02/06/25 16:56 Neut # (Auto) 3.17 10^3/uL (1.8-7.7) 02/06/25 16:56 Lymph # (Auto) 2.2 10^3/uL (0.8-4.8) 02/06/25 16:56 Whitley # (Auto) 0.8 10^3/uL (0.2-0.9) 02/06/25 16:56 Eos # (Auto) 0.3 10^3/uL (0.0-0.8) 02/06/25 16:56 Baso # (Auto) 0.0 10^3/uL (0.0-0.1) 02/06/25 16:56 Nucleated RBC % (auto) 0 % 02/06/25 16:56 Nucleated RBCs # 0.0 /100WBC 02/06/25 16:56 ESR 9 mm/hr (0-15) 02/06/25 16:56 Sodium 131 mmol/L (136-145) L 02/06/25 16:56 Potassium 4.9 mmol/L (3.5-5.1) 02/06/25 16:56 Chloride 95 mmol/L (98-107) L 02/06/25 16:56 Carbon Dioxide 24 mmol/L (22-29) 02/06/25 16:56 Anion Gap 16.9 (5-19) 02/06/25 16:56 BUN 15 mg/dL (8-23) 02/06/25 16:56 Creatinine 1.1 mg/dL (0.5-0.9) H 02/06/25 16:56 GFR Calculation 49.5 mL/min (90-130) L 02/06/25 16:56 Glucose 101 mg/dL (65-115) 02/06/25 16:56 Calculated Osmolality 273 mOsm/kg (285-295) L 02/06/25 16:56 Lactic Acid 1.1 mmol/L (0.5-2.2) 02/06/25 16:56 Calcium 8.8 mg/dL (8.5-10.5) 02/06/25 16:56 Total Bilirubin 0.2 mg/dL (0.15-1.2) 02/06/25 16:56 AST 18 U/L (0-32) 02/06/25 16:56 ALT 10 U/L (0-33) 02/06/25 16:56 Alkaline Phosphatase 146 U/L (35-105) H 02/06/25 16:56 C-Reactive Protein 4.4 mg/L (0.0-4.9) 02/06/25 16:56 NT-Pro-B Natriuret Pep 254 pg/mL (0-125) H 02/06/25 16:56 Total Protein 6.7 g/dL (6.6-8.7) 02/06/25 16:56 Albumin 3.9 g/dL (3.5-5.2) 02/06/25 16:56 Globulin 2.8 g/dL (1.3-4.6) 02/06/25 16:56 All radiology interpretation(s) finalized by discharge Discharge Plan Discharge Patient Disposition: Home Clinical Impression: Dermatitis of lower extremity, Bilateral edema of lower extremity Condition: Stable Prescriptions: New furosemide [Lasix] 40 mg tablet 40 mg PO QAM Qty: 5 0RF No Action oxycodone 5 mg tablet 5 mg PO Q4H PRN (Reason: Moderate To Severe Pain) 7 Days Qty: 40 0RF doxycycline hyclate 100 mg capsule 100 mg PO BID mupirocin 2 % ointment 1 applic topical BID 7 Days Qty: 15 0RF Rx Instructions: Apply to each nare BID for 7 days. meloxicam 15 mg tablet 15 mg PO DAILY PRN (Reason: pain) Qty: 30 2RF levothyroxine 175 mcg tablet 175 mcg PO DAILY Qty: 90 1RF clonazepam [Klonopin] 0.5 mg tablet 0.5 mg PO DAILY PRN (Reason: anxiety) Qty: 30 2RF ondansetron HCl 8 mg tablet 8 mg PO Q6H PRN (Reason: Nausea And Vomiting) Qty: 90 1RF tizanidine 4 mg tablet 4 mg PO DAILY PRN (Reason: Muscle Spasm) hydrocodone-acetaminophen 5-325 mg tablet 0.5 - 1 tab PO Q8H PRN (Reason: Pain) aspirin 325 mg Tablet,Delayed Release (Dr/Ec) 325 mg PO DAILY 30 Days Qty: 30 0RF Discharge Orders: Discharge ED (Routine); Ordered 02/06/25 Ordered By: Hallie Corcoran Referrals: Janae Chavarria MD [Primary Care Provider, Family Practice] Patient Instructions: Patient Portal & Christian Instructions Activity Restrictions/Additional Instructions: As we discussed I will have case management reach out to you to help set you up with a follow-up appointment with dermatology. I would like you to start elevating your legs and use compression stockings to help with the swelling. I will place you on Lasix over the next few days. We are going to hold off on additional antibiotics or antifungals at this time. You need to return to the emergency department for worsening pain or swelling, worsening rash, pain to your hip, fevers, or any other concerns you may have. Print Language: Luxembourger Coding Level of Care Code ED Business Performance Advisor for Katherine Garcia
--- NOTE | 2025-02-06 17:08 | USR_ITS ---
PROCEDURE INFORMATION: Exam: US Duplex Lower Extremity Veins, Bilateral Exam date and time: 02/06/2025 5:38 PM Age: 69 years old Clinical indication: Swelling (edema) of limb; Lower extremity, bilateral; Prior surgery; Surgery date: <1 month; Surgery type: RT hip surg three weeks ago; Additional info: Redness/swelling TECHNIQUE: Imaging protocol: Real-time duplex ultrasound of the bilateral extremities with 2-D carter scale, color Doppler flow and spectral waveform analysis including responses to compression and other maneuvers (when performed) with image documentation. Complete exam focused on the lower extremity veins. Total images: 1 COMPARISON: No relevant prior studies available. FINDINGS: Right deep veins: Unremarkable. The common femoral, femoral, proximal profunda femoral and popliteal veins are patent without thrombus. Normal Doppler waveforms. Normal compressibility and/or augmentation response. Left deep veins: Unremarkable. The common femoral, femoral, proximal profunda femoral and popliteal veins are patent without thrombus. Normal Doppler waveforms. Normal compressibility and/or augmentation response. Superficial veins: Greater saphenous veins at the saphenofemoral junctions are patent bilaterally without thrombus. Soft tissues: Unremarkable. US/[place] [id number] IMPRESSION: No evidence of deep vein thrombosis.
--- NOTE | 2025-02-06 17:08 | XRR_ITS ---
PROCEDURE INFORMATION: Exam: XR Chest Exam date and time: 02/06/2025 5:12 PM Age: 69 years old Clinical indication: Other: Swelling; Prior surgery; Surgery date: 6+ months; Surgery type: Bilateral mastectomy with implants; Additional info: Bilateral lower extremity edema/erythema; Post op hip replacement x 3 weeks ago TECHNIQUE: Imaging protocol: Radiologic exam of the chest. Views: 1 view. Total images: 1 COMPARISON: 1. CR XR chest 1V portable [id number] 07/06/2024 8:[address] lung screening [id number] 04/27/2021 9:47 AM 3. CR XR chest 1V [id number] 04/20/2018 9:21 PM 4. PT PET WB melanoma INITIAL [id number] 09/03/2024 2:17 PM FINDINGS: Lungs: Unremarkable. No consolidation. Lungs are well-aerated without focal acute pathologic pulmonary parenchymal process. Pleural spaces: No significant pleural effusion. No pneumothorax. Heart/Mediastinum: Unremarkable. No cardiomegaly. Vasculature: Aortic wall demonstrates moderate atherosclerotic calcification. Bones/joints: Moderate generalized degenerative changes of the vertebral column characterized by multilevel osteophyte formation, degenerative disc height loss and facet arthrosis commensurate with patient's age. No acute osseous abnormality. Bones are qualitatively demineralized (osteopenic) limiting evaluation for nondisplaced fractures. Soft tissues: Breast prostheses project over the [id number]. Left axillary surgical clips noted once again. Other findings: Right upper quadrant nonspecific surgical clips, likely prior cholecystectomy. XR/XR chest 1V portable [id number] IMPRESSION: 1. No acute cardiopulmonary disease or adverse interval change radiographically. 2. Generalized moderate skeletal degenerative and other chronic/nonacute findings as described above.
[2025-02-06 17:10] LABS: Hematocrit 32.7 % (36-47); Hemoglobin 10.50 g/dL (11.27-16.99); Mean Corpuscular HGB Conc 32.1 g/dL (30-55); Mean Corpuscular Hemoglobin 27.6 pg (27-33); Mean Corpuscular Volume 86.1 fl (85-98); Nucleated Red Blood Cells % 0 %; Platelet Count 338 10^3/cmm (157-399); Red Blood Count 3.80 10^6/uL (3.85-5.65); White Blood Count 6.53 10^3/uL (3.29-11.43)
[2025-02-06 17:26] LABS: Alanine Aminotransferase 10 U/L (0-33); Albumin Level 3.9 g/dL (3.5-5.2); Alkaline Phosphatase 146 U/L (35-105); Anion Gap 16.9 (5-19); Aspartate Amino Transferase 18 U/L (0-32); Blood Urea Nitrogen 15 mg/dL (8-23); Calcium 8.8 mg/dL (8.5-10.5); Carbon Dioxide 24 mmol/L (22-29); Chloride 95 mmol/L (98-107); Creatinine Clr Calc Pharmacy 46.6090; Globulin 2.8 g/dL (1.3-4.6); Glucose 101 mg/dL (65-115); Osmolality Calculated 273 mOsm/kg (285-295); Potassium 4.9 mmol/L (3.5-5.1); Sodium 131 mmol/L (136-145); Total Protein 6.7 g/dL (6.6-8.7)
[2025-02-06 17:29] VITALS: BP 142/95; O2SAT 100
[2025-02-06 17:30] VITALS: BP 142/95; O2SAT 100
[2025-02-06 17:34] LABS: Lactic Sepsis W/Reflex 1.1 mmol/L (0.5-2.2)
[2025-02-06 17:48] LABS: NT Pro B Type Natriuretic Pept 254 pg/mL (0-125)
[2025-02-06 18:43] VITALS: RESP 18
[2025-02-06] MEDS: ondansetron 2 mg/ML SDV 2 mL 4 MG IVP (18:43)
[2025-02-06] MEDS: morphine 4 mg/mL SDV 1 mL IVP (18:43)
[2025-02-06 19:08] VITALS: BP 150/98; O2SAT 96
[2025-02-06 19:25] VITALS: BP 150/98; PULSE 81; RESP 18; O2SAT 95
--- NOTE | 2025-02-07 08:26 | DCPLANNER ---
messaged derm for er f/u
== END 2025-02-06 19:26 | disposition home or self-care (01) ==
PROVIDERS: Emergency Medicine; Emergency Provider Physician Assistant; PCP Family Medicine
DX: L30.9 Dermatitis, unspecified (principal); R60.0 Localized edema; Z98.890 Other specified postprocedural states; Z96.641 Presence of right artificial hip joint; Z85.42 Personal history of malignant neoplasm of other parts of uterus; I25.10 Atherosclerotic heart disease of native coronary artery without angina pectoris; Z85.3 Personal history of malignant neoplasm of breast; I12.9 Hypertensive chronic kidney disease with stage 1 through stage 4 chronic kidney disease, or unspecified chronic kidney disease; N18.31 Chronic kidney disease, stage 3a
CPT/HCPCS: 36415; 71045; 80053; 83605; 83880; 85025; 85651; 86140; 93970; 96374; 96375; 99284; J2270; J2405

== ENCOUNTER → 2025-02-10 16:20 | Outpatient (BNVA) | payer MEDICARE, SELFPAY | PROVIDERS: PCP Family Medicine; Visit Provider Family Medicine | DX: L03.116 Cellulitis of left lower limb (principal); L03.115 Cellulitis of right lower limb | CPT/HCPCS: 87070 ==

== ENCOUNTER → 2025-02-14 10:16 | Outpatient (BNVA) | payer MEDICARE, SELFPAY | PROVIDERS: PCP Family Medicine; Visit Provider Specialist | DX: G56.02 Carpal tunnel syndrome, left upper limb (principal) | CPT/HCPCS: 73130; 99214 ==

== ENCOUNTER → 2025-02-23 15:29 | Outpatient (BNVA) | payer MEDICARE, SELFPAY | PROVIDERS: PCP Family Medicine; Visit Provider Dermatology | DX: I87.2 Venous insufficiency (chronic) (peripheral) (principal); R60.0 Localized edema; L81.4 Other melanin hyperpigmentation | CPT/HCPCS: 99204 ==

== ENCOUNTER → 2025-03-28 09:45 | Outpatient (BNVA) | payer MEDICARE, SELFPAY | PROVIDERS: PCP Family Medicine; Visit Provider Nurse Practitioner | DX: Z98.890 Other specified postprocedural states (principal); Z96.641 Presence of right artificial hip joint | CPT/HCPCS: 73502; 99024 ==

== ENCOUNTER → 2025-04-04 10:34 | Outpatient (BNVA) | payer MEDICARE, SELFPAY | PROVIDERS: PCP Family Medicine; Visit Provider Nurse Practitioner | DX: M16.12 Unilateral primary osteoarthritis, left hip (principal); M87.052 Idiopathic aseptic necrosis of left femur | CPT/HCPCS: 36415; 73502; 80053; 81001; 85025; 99214 ==

== ENCOUNTER 2025-04-28 16:07 | Outpatient (CLI) | payer MEDICARE, SELFPAY ==
--- NOTE | 2025-04-28 16:30 | CT_ITS ---
WS: [id number] CT LEFT hip for DOREEN procedure HISTORY: M16.12 - Unilateral primary osteoarthritis, left hip COMPARISON: Radiograph 04/04/2025 TECHNIQUE: Protocol for DOREEN total hip replacement has been obtained. This includes axial imaging from the hip joint through the knee joint. DLP: 904.23 mGy FINDINGS: LEFT hip: Severe degenerative changes at the LEFT hip joint. Narrowing of the joint space with extensive subchondral cystic changes in the femoral head and acetabulum. Loss of the normal overlying cortex. Synovial thickening and joint effusion. Prior RIGHT hip arthroplasty. LEFT knee: Normal alignment at the knee joint. No destructive changes. Mild narrowing of the joint spaces. CT/CT hip LT [facility] [id number] IMPRESSION: CT imaging provided for DOREEN robotic total knee replacement.
== END 2025-04-28 16:08 | disposition home or self-care (01) ==
LOC: RAD 16:07
PROVIDERS: PCP Family Medicine; Visit Provider Nurse Practitioner
DX: M16.12 Unilateral primary osteoarthritis, left hip (principal); M87.052 Idiopathic aseptic necrosis of left femur
CPT/HCPCS: 73700

== ENCOUNTER 2025-05-10 15:08 | Observation (INO) | payer MEDICARE, SELFPAY ==
[2025-05-10] VITALS (25 sets, daily range): BP systolic 109–170; BP diastolic 60–108; PULSE 73–97; RESP 14–20; TEMP 36.1–36.7; O2SAT 95–100; BMI 23.6
--- NOTE | 2025-05-10 09:41 | ANES.PREANE2 ---
Pre-Anesthetic Assessment Height/Weight: Height 5 ft 4 in Weight 138 lb Temp Pulse Resp BP Pulse Ox O2 Del Method 98 F 75 18 148/97 99 Room Air 05/10/25 09:25 05/10/25 09:25 05/10/25 09:25 05/10/25 09:25 05/10/25 09:25 05/10/25 09:31 Preop Diagnosis: Hip arthritis Operation Date: 05/10/25 10:55 Proposed Procedures p LEFT Total Hip Arthroplasty(Left) - Kamilla Rae MD Was Beta Usha taken within 24 hours: N/A Was Clonidine taken within 24 hours: N/A Last intake: Intake Last Liquid Date 05/09/25 Last Liquid Time 22:00 Last Solid Date 05/09/25 Last Solid Time 18:30 Social Tobacco and No alcohol Airway Submandibular: within normal limits Cervical ROM: within normal limits Mallampati: Class III Dentition: full Comments: Comments: Missing a few teeth, denies any loose Anesthetic Plan ASA status: 3 Anesthesia: MAC and Regional (specify below) Other: No prior issues with anesthesia NPO since yesterday evening Patient had prior side done under spinal anesthesia earlier this year and did well Smoker CKD stage III TREVOR, no CPAP Labs reviewed 04/04/2025 and acceptable for procedure. Chronic hyponatremia noted. NA 132 EKG sinus rhythm with left atrial enlargement Plan for spinal anesthesia Medications/Allergies Home Medications ?Medication ?Instructions ?Recorded ?Confirmed ?Last Taken ?Type hydrocodone 5 mg-acetaminophen 325 0.5 - 1 tab PO Q8H PRN Pain 07/06/24 05/09/25 01/11/25 04:00 History mg tablet tizanidine 4 mg tablet 4 mg PO DAILY PRN Muscle Spasm 07/06/24 05/09/25 01/09/25 History clonazepam 0.5 mg tablet (Klonopin) 0.5 mg PO DAILY PRN anxiety #30 07/08/24 05/09/25 Unknown Rx tabs levothyroxine 175 mcg tablet 175 mcg PO DAILY #90 tabs 08/24/24 05/09/25 05/09/25 Rx ondansetron HCl 8 mg tablet 8 mg PO Q6H PRN Nausea And 12/10/24 05/09/25 01/11/25 04:00 Rx Vomiting #90 tabs mupirocin 2 % topical ointment 1 applic topical BID 05/09/25 05/09/25 Unknown History triamterene 37.5 1 tab PO DAILY PRN swelling in legs 05/09/25 05/09/25 Unknown History mg-hydrochlorothiazide 25 mg tablet Allergies Allergy/AdvReac Type Severity Reaction Status Date / Time Penicillins Allergy Severe ALGY-Anaphy Verified 05/09/25 08:32 laxis cefdinir Allergy Intermediate hives Verified 05/09/25 08:32 aluminum Allergy Unknown Verified 05/09/25 08:32 ciprofloxacin (From Cipro) Allergy rash Verified 05/09/25 08:32 erythromycin base Allergy rash Verified 05/09/25 08:32 nitrofurantoin (From Allergy hives Verified 05/09/25 08:32 Macrodantin) propoxyphene (From Darvon) Allergy rash Verified 05/09/25 08:32 Sulfa (Sulfonamide Allergy rash Verified 05/09/25 08:32 Antibiotics) titanium Allergy Unknown Verified 05/09/25 08:32 [facility] Anesthesia Medical History (Updated 04/12/25 @ 16:56 by LINNEA Jacome-KRISTIN) Primary osteoarthritis of left hip Avascular necrosis of bone of left hip Lymphedema of both lower extremities Elastofibroma of left posterior chest; MRI of [facility] shows this 7.2.25 Joint pain Axillary lymphadenopathy Chronic nausea Enrolled in chronic care management Abnormal alkaline phosphatase test TREVOR (obstructive sleep apnea) not using CPAP Mitral valve prolapse Refusal of statin medication by patient Chronic pain pain meds through pain clinic [facility] Nicotine dependence, cigarettes, uncomplicated Lumbar back pain Diverticulosis Family hx of colon cancer brother and dad CAD (coronary artery disease) has had angioplasty twice; refuses statins History of bilateral breast cancer bilateral mastectomy; no radiation or chemo; sees Dr. Brandt at [facility] Knee pain, right Need for antibiotic prophylaxis for dental procedure CKD stage 3a, GFR 45-59 ml/min atrophic Right History of uterine cancer hyst only Bipolar disorder, in partial remission, most recent episode manic Essential (primary) hypertension Acquired hypothyroidism History of colon polyps Surgical History History of total right hip arthroplasty 8.19.25 Hx of hand surgery Right middle finger knuckle replaced in [place] History of surgery on lower extremity Left lower leg--had fx, surgery, then infected so had hardware removed later History of mandibular surgery R jaw--done b/c of infection in bone after root canal History of surgery of head R mormon; not a craniotomy Hx of colonoscopy with polypectomy hx of >20 polyps removed; Hx of hysterectomy ovaries remaining; done for uterine cancer History of kidney surgery had ureter surgery bilaterally; H/O left mastectomy H/O right mastectomy History of cholecystectomy History of hernia repair R abdominal X 2 History of colonoscopy History of angioplasty cardiac; has had angioplasty X 2--last time at [facility] History of appendectomy History of elbow surgery Right History of esophagogastroduodenoscopy (EGD) Family History Mother Alzheimer's dementia Sister Alzheimer's dementia Grandmother Aneurysm cerebral Father Colon cancer Grandfather Cancer kidney Brother Colon cancer Sister Cancer Lymphoma Other Kidney disease Social History Smoking and tobacco/nicotine status: current every day tobacco/nicotine user cigarettes Packs smoked per day: 0.75 [ Other cigarette details: 27pk yr hx; started age 32] Alcohol intake: current Alcohol intake frequency: few times a month Alcohol type: beer Substance/Drug Use: never Household members: spouse Marital status: Number of children: 0 Highest education level completed: Some College, No Degree Current occupational status: retired 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
[2025-05-10] MEDS: acetaminophen 1,000 MG/100 ML PIGGYBACK 400 MG IV ×2 (09:57→16:42)
--- NOTE | 2025-05-10 10:01 | P.HPUD_ITS ---
Surgery/Procedure H&P Update DATE OF PROCEDURE: May 10, 2025 DATE H&P PERFORMED: 04/18/25 H&P UPDATE INFORMATION: I have reviewed H&P completed within last 30 days, I have examined patient prior to procedure, No changes to prior documentation, H&P is in [facility] EMR on date indicated and Risks and benefits of the procedure reviewed PREOP DIAGNOSIS: Left Hip arthritis PLANNED PROCEDURE: Operation Date: 05/10/25 10:55 Proposed Procedures p LEFT Total Hip Arthroplasty(Left) - Kamilla Rae MD Related Problem List Diagnoses 1. Primary osteoarthritis of left hip: 2. Avascular necrosis of bone of left hip:
[2025-05-10] MEDS: tranexamic acid 1,000 mg/10mL SDV 1000 MG IV (11:50)
[2025-05-10] MEDS: BUPivacaine liposome 13.3 mg/mL SDV 20 mL 266 MG XX (12:25)
[2025-05-10] MEDS: BUPivacaine 0.5% INJ 30 mL 20 ML XX (12:25)
--- NOTE | 2025-05-10 14:41 | XRR_ITS ---
PROCEDURE INFORMATION: Exam: XR Pelvis Exam date and time: 05/10/2025 3:38 PM Age: 70 years old Clinical indication: Pelvic pain; Additional info: S/P shantel, low ap pelvis TECHNIQUE: Imaging protocol: Radiologic exam of the pelvis. Views: 1 or 2 view. COMPARISON: CR XR hip LT 2-3V wo/w pel* [id number] 04/04/2025 10:36 AM FINDINGS: Bones/joints: Bilateral total hip replacement new on the left side. Anatomic alignment. Bone and metal are intact. No acute fracture. Soft tissues: Unremarkable. XR/XR pelvis 1-2V* [id number] IMPRESSION: Normal following placement.
[2025-05-10] MEDS: fentaNYL 50 mcg/mL INJ 2mL IVP ×2 (14:45→14:53)
--- NOTE | 2025-05-10 14:54 | PM.OP ---
Operative Report Date of procedure: May 10, 2025 Pre-op diagnosis: Severe left hip degenerative osteoarthritis with avascular necrosis Severe titanium allergy Post-op diagnosis: Severe left hip degenerative osteoarthritis with avascular necrosis Severe titanium allergy Post-op findings: Complete collapse of the femoral head and shortening of the left lower extremity. Procedure done: Left total hip arthroplasty utilizing revision acetabular components, cemented acetabulum and femoral stem, nontitanium Implants: The Novae stainless steel Acetabular component and the cemented Gray total hip system with the following implants: Novae Stick 51 cemented stainless steel acetabular component, the Novae Insert XPOE-E 51/28 mm, a 28 mm x +4 mm ceramic Gray femoral head, the Size 4 Odum Accolade C, 127 degree neck angle hip stem, cemented, with a universal distal cement spacer, and Odum tobramycin cement Specimens removed/disposition: Femoral head, disposed of Pathology: None Surgeon: Kamilla Rae MD Director Of Hemophilia: Nelda Mccain, nurse practitioner, who services were required for positioning, exposure, retraction, and closure Anesthesia: Spinal (With MAC, ASA 3) Estimated blood loss (mL): 450 IV fluids (mL): 1,600 Urine output (mL): 200 Complications: None Findings: Severe degenerative osteoarthritis and femoral head collapse. There were significant inflammatory tissues within the acetabulum and femoral head was quite high riding. Following the surgical procedure, the hip was stable at approximately 90 degrees of flexion with 85 degrees of internal rotation and 30 degrees abduction. It was also stable to toe hang. Condition: stable Disposition: PACU (Then to floor for postoperative rehabilitation and pain management) Brief History: This 70-year-old woman presented today for left total hip arthroplasty. She underwent right total hip arthroplasty, cemented both acetabulum and femur on January 11, 2025. The cemented prosthesis is a revision type prosthesis utilized secondary to the patient's severe titanium allergy. She has done well with her right total hip, and now she wishes to proceed with left total hip arthroplasty. Patient understands the risks and complications of the procedure. Consents were signed in the office. Questions were answered. She was seen again on the day of surgery and further opportunity was offered to have questions answered. The patient wished to proceed. Procedure: Patient was brought to the operating theater.? She was transferred to the operating room table.? The patient had a spinal anesthesia, ASA 3 with MAC uneventfully.? Following administration of adequate anesthesia, the patient was placed in full lateral position and held in position with a pegboard.? The patient's left lower extremity was then prepped and draped in usual fashion utilizing DuraPrep.? It was draped free.? Following prepping and draping, a surgical pause was performed. At the time of surgical pause, we identified the site and side of surgery.? We also identified the patient and preoperative surgical markings.? Confirmation was made of equipment availability including appropriate equipment for cementing.? Additionally, the patient's preoperative IV antibiotic, clindamycin 600 mg was confirmed as being given in a timely fashion and being the appropriate antibiotic.? She received TXA 1 g preoperatively as well 1 g postoperatively. Following the surgical pause, an incision was made centering over the patient's greater trochanter continuing proximally and distally as necessary to allow access to the hip joint.? Dissection continued through skin and soft tissues using a scalpel, and hemostasis was obtained using electrocautery. The tensor fascia cecilia was identified and incised longitudinally.? Sciatic nerve was identified and protected throughout the surgical procedure.? A Charnley U retractor was placed after the tensor fascia cecilia had been incised longitudinally, and the sciatic nerve had been identified.? The piriformis muscle was identified and tagged. Piriformis muscle along with the remaining short external rotators were then incised from the posterior aspect of the hip joint. These were retracted posteriorly. ? The capsule was entered in a T-type fashion with the edges being tagged. The hip was then dislocated.? Following hip dislocation, acetabular labrum was removed. There was significant soft tissue proliferation as well secondary to the deformities from avascular necrosis. The soft tissue was very vascular and nearly filled the acetabulum and portions of the femoral head. Hemostasis was obtained prior to proceeding with the actual total hip arthroplasty. A femoral neck osteotomy was accomplished in the appropriate position.? We then evaluated the acetabulum. Following femoral neck osteotomy, the femur was retracted anteriorly.? Soft tissues were removed from within the acetabulum prior to the reaming process.? We then began reaming, and further reactive soft tissue was removed..? We deepened the acetabulum utilizing a smaller reamer.? Evaluation of the acetabulum was accomplished, and we were able to ream to 51 mm to allow for a size 51 mm acetabular shell. When attempt was made to place the acetabulum in position, it would not impact and allow for cement, therefore, we reamed to a 53 to allow for the cemented 51 acetabular shell. Preparation was made for cementing. Acetabulum was irrigated and dried with a lap sponge was placed to further dry it. After the cement was prepared, the acetabular component was impacted into position.? It was noted that the acetabular component matched the bony anatomy. Excess cement was removed during the process of cement curing. Once the acetabulum had been cemented into position, attention was directed to the proximal femur.? The proximal femur was lifted out of the wound.? A canal finder was passed, and we then used the reamer to lateralize.? We then began broaching. We broached sequentially and a size 4 Accolade gave excellent fit and fill.? With the size 4 broach, trial reduction was accomplished initially with a size +0 mm offset femoral head.? It was felt that there was some instability to the hip particularly with internal rotation, and we increased to a +4 mm offset femoral head. The patient was stable with this construct.? With this in place, we had the above stabilities, and at that time, we felt that we had restored normal leg lengths.? We also felt that we had excellent stability noted above. The femur was prepared for cementing including using a brush and the pulse lavage with a brush as well. The wick was placed into the femoral canal to allow any bleeding to be absorbed. This was left in place while the cement was prepared. Additionally, a lap sponge was placed into the acetabulum to avoid any cement from the femur inadvertently entering the acetabulum. After the cement was prepared in the cement gun, the cement was passed into the femoral canal. We placed a 9 mm universal distal cement spacer prior to placing cement into the canal. Once the cement was in the canal, the femur was placed and subsequently impacted into position. It also was held in an unchanged position during the cementing process and curing. Once the cement had fully cured remaining cement that had not been cleared during the curing process was further removed. Once this was in position, we evaluated the area to assure that there was no extruded cement either in the area of the acetabulum or femur, and preparation was made for placement of the femoral head and MDM style liner. The Novae insert was brought onto the field. The +4 x 28 mm Biolox ceramic femoral head was placed into this insert. This was impacted onto the proximal femur. The wound again was irrigated and the hip was reduced. Once again, we had the stability as noted above. The hip was reduced uneventfully. It was placed through range of motion and found to be stable. Being satisfied with the prosthesis, attention was directed to closure.? Exparel was injected in the soft tissue surrounding the hip. Closure was accomplished with 0 Vicryl in the capsular tissues.? Piriformis was reattached with 0 Vicryl as well.? Tensor fascia cecilia was closed with 0 Vicryl in an interrupted fashion.? The subcutaneous tissues were closed with 2-0 STRATAFIX.? Vancomycin powder and a Gelfoam thrombin mixture was placed into the wound as well.? The skin was closed with 3-0 STRATAFIX followed by Dermabond, Prineo, and Opsite.? The patient was placed in an abduction pillow.?The patient was then rolled onto her back. He was returned the Recovery Room in a satisfactory condition and will be discharged to the floor for postoperative rehabilitation and pain management.? There were no complications. Related Problem List Diagnoses 1. Primary osteoarthritis of left hip: 2. Avascular necrosis of bone of left hip: 3. Contact sensitivity to metal, current reaction:
[2025-05-10] MEDS: HYDROmorphone 1 mg/mL INJ 1ml 0.5 MG IVP ×2 (15:05→15:15)
[2025-05-10] MEDS: mupirocin oint 22 gm 1 APPLIC NASAL (16:40)
[2025-05-10] MEDS: sennosides-docusate Tablet 2 TAB PO (16:41)
[2025-05-10] MEDS: oxyCODONE 5 mg IR Tab/Cap PO ×2 (16:41→20:25)
[2025-05-10] MEDS: chlorhexidine gluconate 0.12% Btl 473 mL 30 ML MUCOUS MEM (16:42)
--- NOTE | 2025-05-10 16:58 | ANE.PACU2 ---
Inpatient post-anesthesia follow up: Airway intact: Yes Vital signs: Temperature 97.0 F Pulse Rate 77 Respiratory Rate 18 Blood Pressure 149/99 Pulse Oximetry 97 Oxygen Delivery Me thod Room Air Oxygen Flow Rate Fraction of Inspir ed Oxygen Hydration adequate: Yes Nausea and vomiting: No Pain level: 2 Mental status: Baseline
[2025-05-10] MEDS: tranexamic acid 1,000 MG/100 ML PREMIX 600 MG IV (20:12)
[2025-05-11] VITALS (8 sets, daily range): BP systolic 95–115; BP diastolic 58–77; PULSE 71–86; RESP 16–18; TEMP 36.5–36.8; O2SAT 94–97
[2025-05-11] MEDS: oxyCODONE 5 mg IR Tab/Cap PO ×4 (00:31→13:50)
[2025-05-11] MEDS: acetaminophen 1,000 MG/100 ML PIGGYBACK 40 MG IV (00:31)
[2025-05-11] MEDS: sennosides-docusate Tablet 2 TAB PO (04:45)
[2025-05-11 06:19] LABS: Hematocrit 30.4 % (36-47); Hemoglobin 9.50 g/dL (11.27-16.99); Mean Corpuscular HGB Conc 31.3 g/dL (30-55); Mean Corpuscular Hemoglobin 25.7 pg (27-33); Mean Corpuscular Volume 82.2 fl (85-98); Nucleated Red Blood Cells % 0 %; Platelet Count 198 10^3/cmm (157-399); Red Blood Count 3.70 10^6/uL (3.85-5.65); White Blood Count 5.20 10^3/uL (3.29-11.43)
[2025-05-11] MEDS: mupirocin oint 22 gm 1 APPLIC NASAL (06:37)
[2025-05-11] MEDS: acetaminophen 1,000 MG/100 ML PIGGYBACK 400 MG IV (06:37)
[2025-05-11] MEDS: multivitamin therapeutic Tablet 1 TAB PO (06:39)
[2025-05-11] MEDS: chlorhexidine gluconate 0.12% Btl 473 mL 30 ML MUCOUS MEM (13:00)
--- NOTE | 2025-05-11 13:41 | P.DS_ITS ---
Discharge Providers Date of Admission: 05/10/25 15:08 Date of Discharge: May 11, 2025 Attending Provider at Admission: Kamilla Rae MD Attending Provider at Discharge: Kamilla Rae MD Primary Care Provider: Janae Chavarria MD Diagnoses at Discharge Discharge Diagnosis 1. Status post left hip replacement: 2. Primary osteoarthritis of left hip: 3. Avascular necrosis of bone of left hip: 4. Contact sensitivity to metal, current reaction: Reason for Visit Reason for Visit: M16.12 Brief History: This 70-year-old woman presented today for left total hip arthroplasty. She underwent right total hip arthroplasty, cemented both acetabulum and femur on January 11, 2025. The cemented prosthesis is a revision type prosthesis utilized secondary to the patient's severe titanium allergy. She has done well with her right total hip, and now she wishes to proceed with left total hip arthroplasty. Patient understands the risks and complications of the procedure. Consents were signed in the office. Questions were answered. She was seen again on the day of surgery and further opportunity was offered to have questions answered. The patient wished to proceed. Hospital Course Hospital Course This 70-year-old woman was admitted for same-day surgery as noted above. Patient underwent cemented total hip arthroplasty secondary to titanium allergy. This was a revision type stem to allow her to be able to undergo the surgical procedure. She did well and on the first postoperative day, she had minimal complaints. She was working with physical therapy and pain was controlled on oral pain medications. The patient was felt safe to be discharged to home. She understood her hip precautions from her previous hip surgery. She was discharged home to follow-up with me in the office as previously scheduled. Physical Exam Const: COMMON NORMALS: no acute distress, average body habitus, patient oriented x3 and alert GENERAL APPEARANCE: cooperative and comfortable ORIENTATION/CONSCIOUSNESS: Yes awake HENMT: COMMON NORMALS: normocephalic and atraumatic HEAD & SCALP: normocephalic and atraumatic Eye: GENERAL EYE: appearance normal, both eyes and all related structures Chest: COMMONS NORMALS: normal inspection of the chest Resp: COMMON NORMALS: normal respiratory effort EFFORT & INSPECTION: Yes able to speak in complete sentences and Yes symmetric chest movement Extremity: LEFT LOWER EXTREMITY: Yes hip joint (Dressing is dry and intact. Minimal swelling.) Left hip: Yes inspection (No significant ecchymosis), Yes palpation (Minimal to no discomfort), Yes ROM (Not evaluated) and Yes neurovascular exam (Intact distally with no evidence of DVT) Neuro: COMMON NORMALS: patient oriented x3 SENSORIUM/ORIENTATION: Yes alert Psych: COMMON NORMALS: mental status grossly normal APPEARANCE: Yes grossly normal ATTITUDE: Yes calm and Yes engaged ATTENTION/CONCENTRATION: Yes attention grossly intact Skin: COMMON NORMALS: no rashes or lesions noted GENERAL SKIN EXAM: no rashes or lesions noted Urinary Catheter Management: Lyman: Cath Placed During This Visit: yes Reason for Continuing Indwelling Catheter: Perioperative Use in Selected Surgeri es Urinary Catheter Date of Insertion: 05/10/25 Discharge Data Studies Completed and Pending Pending at discharge Category Date Time Status XR pelvis 1-2V* [id number] Routine Exams 05/10/25 14:41 Taken Laboratory Results WBC 5.20 10^3/uL (3.29-11.43) 05/11/25 06:07 RBC 3.70 10^6/uL (3.85-5.65) L 05/11/25 06:07 Hgb 9.50 g/dL (11.27-16.99) L 05/11/25 06:07 Hct 30.4 % (36-47) L 05/11/25 06:07 MCV 82.2 fl (85-98) L 05/11/25 06:07 MCH 25.7 pg (27-33) L 05/11/25 06:07 MCHC 31.3 g/dL (30-55) 05/11/25 06:07 RDW 17.6 % (12.1-15.1) H 05/11/25 06:07 Plt Count 198 10^3/cmm (157-399) 05/11/25 06:07 MPV 9.1 fL (7.4-10.4) 05/11/25 06:07 Neut % (Auto) 50.6 % 05/11/25 06:07 Lymph % (Auto) 34.2 % 05/11/25 06:07 [place] % (Auto) 11.7 % 05/11/25 06:07 Eos % (Auto) 2.9 % 05/11/25 06:07 Baso % (Auto) 0.4 % 05/11/25 06:07 Neut # (Auto) 2.63 10^3/uL (1.8-7.7) 05/11/25 06:07 Lymph # (Auto) 1.8 10^3/uL (0.8-4.8) 05/11/25 06:07 [place] # (Auto) 0.6 10^3/uL (0.2-0.9) 05/11/25 06:07 Eos # (Auto) 0.2 10^3/uL (0.0-0.8) 05/11/25 06:07 Baso # (Auto) 0.0 10^3/uL (0.0-0.1) 05/11/25 06:07 Nucleated RBC % (auto) 0 % 05/11/25 06:07 Nucleated RBCs # 0.0 /100WBC 05/11/25 06:07 Vitals Last Vital Signs Temp 98.3 F 05/11/25 11:45 Pulse 86 05/11/25 11:45 Resp 18 05/11/25 11:45 BP 108/74 05/11/25 11:45 Pulse Ox 97 05/11/25 11:45 O2 Del Method Room Air 05/11/25 11:45 Discharge Plan Discharge Patient Disposition: Home Health Service Condition: Stable Prescriptions: New celecoxib 200 mg Capsule 200 mg PO 1XD 30 Days Qty: 30 0RF acetaminophen 500 mg Tablet 1,000 mg PO Q8H 15 Days Qty: 90 0RF aspirin 325 mg Tablet,Delayed Release (Dr/Ec) 325 mg PO DAILY 30 Days Qty: 30 0RF oxycodone 10 mg tablet 5 - 10 mg PO Q4H PRN (Reason: Moderate To Severe Pain) 7 Days Qty: 40 0RF Continued levothyroxine 175 mcg tablet 175 mcg PO DAILY Qty: 90 1RF clonazepam [Klonopin] 0.5 mg tablet 0.5 mg PO DAILY PRN (Reason: anxiety) Qty: 30 2RF ondansetron HCl 8 mg tablet 8 mg PO Q6H PRN (Reason: Nausea And Vomiting) Qty: 90 1RF tizanidine 4 mg tablet 4 mg PO DAILY PRN (Reason: Muscle Spasm) hydrocodone-acetaminophen 5-325 mg tablet 0.5 - 1 tab PO Q8H PRN (Reason: Pain) triamterene-hydrochlorothiazid 37.5-25 mg tablet 1 tab PO DAILY PRN (Reason: swelling in legs) mupirocin 2 % ointment 1 applic topical BID Rx Instructions: Apply to each nare BID for 7 days. Discharge Order = DC NOW: Discharge Order (Routine); Ordered 05/11/25 Ordered By: Kamilla Rae Referrals: [facility] [Outside] Kamilla Rae MD [Physician, Orthopedics] - 05/23/25 11:00 am Discharge Diet: Advance as tolerated and Usual diet Discharge Activity: Increase activity as tolerated, Limit activity as instructed, Use walker/crutches as instructed and As per PT/OT instructions Patient Instructions: Aspirin (By mouth), Oxycodone, Rapid Release (By mouth), Celecoxib (By mouth), Acute Wound Care (DC), Opioid Safety, Post Anesthesia Care, Patient Portal & Christian Instructions Activity Restrictions/Additional Instructions: Weightbearing as tolerated. Physical therapy for range of motion, ambulation, and gait training. Posterior precautions as you are instructed. You may shower and get your leg wet, but do not submerge your hip in water. Discharge Attestations Time Spent in Discharge Care*: greater than 30 min Specific Discharge Activities: educating patient, documenting/other paperwork and evaluating patient/reviewing data Quality Metrics Clinical Quality Measures [ No reported AMI, CVA or VTE this stay] Coding Level of Care Code Acute Code for Chg Fwd Diagnoses Status post left hip replacement Z96.642 Primary osteoarthritis of left hip M16.12 Avascular necrosis of bone of left hip M87.052 Contact sensitivity to metal, current reaction L23.0
--- NOTE | 2025-05-11 15:19 | PC.NURSE ---
Discussed discharge with patient and spouse. Went over new and continued medications. Discussed restrictions, signs and symptoms of infection as well as follow up appointments. Medications brought to room. Both compression stockings on patient. All questions answered. Patient verbalized understanding.
== END 2025-05-11 15:12 | disposition home health service (06) ==
LOC: MEDSURG 15:08
PROVIDERS: Admitting Provider Specialist; PCP Family Medicine; Visit Provider Specialist
PROC: (CPT 27130; principal; 2025-05-10 10:55)
DX: M16.12 Unilateral primary osteoarthritis, left hip (principal); M87.052 Idiopathic aseptic necrosis of left femur; L23.0 Allergic contact dermatitis due to metals; I12.9 Hypertensive chronic kidney disease with stage 1 through stage 4 chronic kidney disease, or unspecified chronic kidney disease; N18.31 Chronic kidney disease, stage 3a; E03.9 Hypothyroidism, unspecified; G47.33 Obstructive sleep apnea (adult) (pediatric); Z85.3 Personal history of malignant neoplasm of breast; Z85.038 Personal history of other malignant neoplasm of large intestine; I34.1 Nonrheumatic mitral (valve) prolapse; F17.210 Nicotine dependence, cigarettes, uncomplicated; Z80.0 Family history of malignant neoplasm of digestive organs; Z80.51 Family history of malignant neoplasm of kidney; Z80.7 Family history of other malignant neoplasms of lymphoid, hematopoietic and related tissues
CPT/HCPCS: 27130; 36415; 72170; 85025; 97110; 97116; 97161; 97165; A4216; A4649; A9281; C1713 ×2; C1776; G0378; J0131; J0666; J1171; J2250; J2704; J3010; J3373; J3490; J7030; J9999; L8699

== ENCOUNTER → 2025-05-24 15:01 | Outpatient (BNVA) | payer MEDICARE, SELFPAY | PROVIDERS: PCP Family Medicine; Visit Provider Nurse Practitioner | DX: Z98.890 Other specified postprocedural states (principal); Z96.642 Presence of left artificial hip joint; M87.9 Osteonecrosis, unspecified | CPT/HCPCS: 99024 ==